=== PATIENT | female | born 1955 | race Caucasian/White ===

== ENCOUNTER 2017-03-13 11:47 | Inpatient (IN) | payer MEDICAID ==
[2017-03-13] VITALS (8 sets, daily range): BP systolic 116–136; BP diastolic 61–69; PULSE 105–111; RESP 18–29; TEMP 97.7–98.7; O2SAT 98–100
[~2017-03-13] VITALS: Ht 162.6 cm; Wt 47.1 kg
[2017-03-13] MEDS ORDERED: DIPHTH/TETANUS/ACEL PERTUSSIS (BOOSTER) 0.5 ML VIAL/PFS IM ONE (11:53)
[2017-03-13] MEDS ORDERED: ceFAZolin 2 GM PREMIX 50 ML ONE (11:53)
[2017-03-13 12:09] LABS: I-STAT POTASSIUM 3.4 MMOL/L (3.5-4.9)
[2017-03-13 12:13] LABS: HEMATOCRIT 29.9 % (35.0-46.0); MEAN CORPUSCULAR HEMOGLOBIN 32.5 PG (27.0-34.0); MEAN CORPUSCULAR HGB CONC 33.8 % (32.0-36.0); PLATELET COUNT 333 TH/MM3 (150-450); RED BLOOD COUNT 3.12 MIL/MM3 (4.00-5.30); RED CELL DISTRIBUTION WIDTH 12.6 % (11.6-17.2); WHITE BLOOD COUNT 25.1 TH/MM3 (4.0-11.0)
[2017-03-13] MEDS ORDERED: IOHEXOL 350 MG/ML 10 ML VIAL (for RAD DIAG) IVCONTRAST ONE (12:15)
--- NOTE | 2017-03-13 12:15 | RADRPT ---
EXAM DATE/TIME: 03/13/2017 11:42 [facility] COMPARISON: No previous studies available for comparison. INDICATIONS : Trauma from fall pain sacrum. MEDICAL HISTORY : None. SURGICAL HISTORY : None. ENCOUNTER: Initial ACUITY: 2 days PAIN SCORE: 6/10 LOCATION: Pelvis FINDINGS: A single view of the chest demonstrates the lungs to be symmetrically aerated without evidence of mas s, infiltrate or effusion. The cardiomediastinal contours are unremarkable. Osseous structures are intact. CONCLUSION: Limited but negative exam. Alex Decker MD FACR on March 13, 2017 at 12:13 Board Certified Radiologist. This report was verified electronically.
[2017-03-13 12:16] LABS: HEMO FLAGS AUTO DIFF
[2017-03-13 12:20] LABS: INTERNATIONAL NORMALIZED RATIO 0.9 RATIO; PROTHROMBIN TIME - PATIENT 10.3 SEC (9.8-11.6)
--- NOTE | 2017-03-13 12:21 | RADRPT ---
EXAM DATE/TIME: 03/13/2017 11:57 [facility] COMPARISON: No previous studies available for comparison. INDICATIONS : Trauma alert, found down. RADIATION DOSE: 69.15 CTDIvol (mGy) MEDICAL HISTORY : Non-responsive. SURGICAL HISTORY : Non-responsive. ENCOUNTER: Initial ACUITY: 1 day PAIN SCALE: 10/10 LOCATION: cranial TECHNIQUE: Multiple contiguous axial images were obtained of the head. Using automated exposure control and adj ustment of the mA and/or kV according to patient size, radiation dose was kept as low as reasonably a chievable to obtain optimal diagnostic quality images. DICOM format image data is available electro nically for review and comparison. FINDINGS: CEREBRUM: Small cortical contusion high in the orbitofrontal region the right and extends down to the expected location of the LACHO with subarachnoid blood. Aneurysm is suspected. The left hemisphere is unremarkable. Ventricular size is appropriate. The posterior fossa appears normal EXTRACRANIAL: The visualized portion of the orbits is intact. SKULL: The calvaria is intact. No evidence of skull fracture. CONCLUSION: Small amount of parenchymal hemorrhage and subarachnoid blood also suspicious for ru ptured aneurysm. Alex Decker MD FACR on March 13, 2017 at 12:14 Board Certified Radiologist. This report was verified electronically.
--- NOTE | 2017-03-13 12:24 | RADRPT ---
EXAM DATE/TIME: 03/13/2017 11:58 [facility] COMPARISON: No previous studies available for comparison. INDICATIONS : Trauma alert, found down RADIATION DOSE: 37.05 CTDIvol (mGy) ; Combined studies MEDICAL HISTORY : Non-responsive. SURGICAL HISTORY : Non-responsive. ENCOUNTER: Initial ACUITY: 1 day PAIN SCALE: 10/10 LOCATION: neck TECHNIQUE: Volumetric scanning of the cervical spine was performed. Multiplanar reconstructions in the sagittal, coronal and oblique axial planes were performed. Using automated exposure control and adjustment o f the mA and/or kV according to patient size, radiation dose was kept as low as reasonably achievable to obtain optimal diagnostic quality images. DICOM format image data is available electronically f or review and comparison. FINDINGS: VERTEBRAE: Normal vertebral body height. ALIGNMENT: No evidence of subluxation. C2-C3: The bony spinal canal is normal in size. No evidence of disc bulge or herniation. The neural forami na are bilaterally patent. C3-C4: The bony spinal canal is normal in size. No evidence of disc bulge or herniation. The neural forami na are bilaterally patent. C4-C5: Minimal motion is present mild degenerative facet changes. C5-C6: Mild uncinate ridging with bilateral neural foraminal encroachment. No motion is evident. Mild unci tatiana ridging without spinal stenosis or neural foraminal encroachment. C6-C7: Mild uncinate ridging and minimal bilateral neural foramina encroachment. C7-T1: The bony spinal canal is normal in size. No evidence of disc bulge or herniation. The neural forami na are bilaterally patent. CONCLUSION: Motion artifact, mild degenerative changes at C5-C6 and C6-C7 without fracture. Alex Decker MD FACR on March 13, 2017 at 12:21 Board Certified Radiologist. This report was verified electronically.
--- NOTE | 2017-03-13 12:27 | RADRPT ---
EXAM DATE/TIME: 03/13/2017 12:02 [facility] COMPARISON: No previous studies available for comparison. INDICATIONS : Trauma alert, Found down IV CONTRAST: 95 cc Omnipaque 350 (iohexol) IV ; Cumulative dose for multiple exams. ORAL CONTRAST: No oral contrast ingested. RADIATION DOSE: 9.96 CTDIvol (mGy) ; Combined studies MEDICAL HISTORY : Non-responsive. SURGICAL HISTORY : Non-responsive. ENCOUNTER: Initial ACUITY: 1 day PAIN SCALE: 10/10 LOCATION: Abdominal area TECHNIQUE: Volumetric scanning of the abdomen and pelvis was performed. Using automated exposure control and ad justment of the mA and/or kV according to patient size, radiation dose was kept as low as reasonably achievable to obtain optimal diagnostic quality images. DICOM format image data is available electro nically for review and comparison. FINDINGS: The lung base is are clear without pneumothorax. The liver, spleen, and adrenal glands are unremarkable minimal calcification is seen about the uncin ate process of the pancreas. The right and left kidneys are unremarkable There is no free fluid. Pelvic contents are unremarkable Moderate scoliosis is noted with degenerative changes in the facets and both SI joints. Displaced fr acture is not appreciated. CONCLUSION: Minimal calcifications in uncinate process pancreas Negative for acute metastatic injury Negative for displaced fracture Degenerative changes in the lumbar spine. Alex Decker MD FACR on March 13, 2017 at 12:23 Board Certified Radiologist. This report was verified electronically.
--- NOTE | 2017-03-13 12:33 | RADRPT ---
EXAM DATE/TIME: 03/13/2017 12:00 [facility] COMPARISON: No previous studies available for comparison. INDICATIONS : Trauam alert, found down IV CONTRAST: 95 cc Omnipaque 350 (iohexol) IV ; Cumulative dose for multiple exams. RADIATION DOSE: 9.96 CTDIvol (mGy) ; Combined studies MEDICAL HISTORY : Non-responsive. SURGICAL HISTORY : Non-responsive. ENCOUNTER: Initial ACUITY: 1 day PAIN SCALE: 10/10 LOCATION: chest TECHNIQUE: Volumetric scanning of the chest was performed. Using automated exposure control and adjustment of t he mA and/or kV according to patient size, radiation dose was kept as low as reasonably achievable to obtain optimal diagnostic quality images. DICOM format image data is available electronically for review and comparison. Follow-up recommendations for detected pulmonary nodules are based at a minimum on nodule size and pa tient risk factors according to Fleischner Society Guidelines. FINDINGS: There is no pneumothorax or contusion. There is no axillary adenopathy Mediastinum is unremarkable There is no pericardial effusion The large outer hernia is noted Review of bone windows reveals thoracolumbar scoliosis. I don't see displaced rib fracture Thoracic spine is intact. CONCLUSION: Scoliosis, negative for acute thoracic injury. Alex Decker MD FACR on March 13, 2017 at 12:31 Board Certified Radiologist. This report was verified electronically.
[2017-03-13] MEDS ORDERED: IODIXANOL 320 MG/ML 10 ML VIAL (for Rad CT) IV ONE (12:35)
--- NOTE | 2017-03-13 12:35 | RADRPT ---
EXAM DATE/TIME: 03/13/2017 11:42 [facility] COMPARISON: No previous studies available for comparison. INDICATIONS : Fall pain upper back. MEDICAL HISTORY : None. SURGICAL HISTORY : None. ENCOUNTER: Initial ACUITY: 2 days PAIN SCORE: 8/10 LOCATION: Bilateral chest FINDINGS: No definite fractures, or dislocations are identified. No definite lytic or sclerotic lesion is seen . There is moderate amount of stool throughout the colon. CONCLUSION: No definite fracture is seen for technique. K. Zenon Perez MD on March 13, 2017 at 12:33 Board Certified Radiologist. This report was verified electronically.
--- NOTE | 2017-03-13 12:50 | RADRPT ---
EXAM DATE/TIME: 03/13/2017 12:00 [facility] COMPARISON: No previous studies available for comparison. INDICATIONS : Trauma alert, found down RADIATION DOSE: ; Reconstructed from previous dataset, no dose MEDICAL HISTORY : Non-responsive. SURGICAL HISTORY : Non-responsive. ENCOUNTER: Initial ACUITY: 1 day PAIN SCALE: 10/10 LOCATION: Lower back TECHNIQUE: Volumetric scanning of the lumbar spine was performed. Multiplanar reconstructions in the sagittal, coronal and oblique axial planes were performed. Using automated exposure control and adjustment of the mA and/or kV according to patient size, radiation dose was kept as low as reasonably achievable t o obtain optimal diagnostic quality images. DICOM format image data is available electronically for review and comparison. FINDINGS: No significant compression deformities, spondylolysis, or spondylolisthesis is seen. There is scolios is convexity towards the left. L1-L2: No appreciable compromise to the thecal sac, or the exiting nerve roots is seen. The neural foramina and lateral recesses are patent bilaterally. L2-L3: Moderate degenarative changes are seen within the disc space and facets. Slight bulging disc a nd hypertrophic changes are seen with indentation on the thecal sac and no significant compromise to the thecal sac or the exiting nerve roots. L3-L4: Moderate overall thecal sac stenosis is seen due to bulging disc and hypertrophic changes. Mod erate degenarative changes are seen within the disc space and facets. There is slight neural foramina compromise on the right due to asymmetrical bulging disc and hypertrophic changes. L4-L5: Moderate degenarative changes are seen within the disc space and facets. Moderate lateral rece ss compromise is seen on the left due to hypertrophic changes and bulging disc. There is slight neura l foramina compromise on the left due to asymmetrical bulging disc and hypertrophic changes. Slight b ulging disc and hypertrophic changes are seen with indentation on the thecal sac and no significant c ompromise to the thecal sac. L5-S1: No appreciable compromise to the thecal sac, or the exiting nerve roots is seen. The neura l foramina and lateral recesses are patent bilaterally CONCLUSION: 1. Moderate thecal sac stenosis L3-4. 2. Neural foramina compromise right L3-L4, left L4-5 and moderate lateral recess stenosis left L4-5. Terrell Perez MD on March 13, 2017 at 12:41 Board Certified Radiologist. This report was verified electronically.
[2017-03-13] MEDS ORDERED: SODIUM CHLOR 0.9% 1000 ML INJ 1,000 ML IV SCH (12:51)
[2017-03-13] MEDS ORDERED: MAGNESIUM HYDROXIDE SUSP 30 ML CUP PO PRN (13:00)
[2017-03-13] MEDS ORDERED: ACETAMINOPHEN 325 MG TAB PO PRN (13:00)
[2017-03-13] MEDS ORDERED: RESP: ALBUTEROL 2.5 MG/IPRATROPIUM 0.5 MG NEB (PRN) INH (13:00)
[2017-03-13] MEDS ORDERED: CHLORHEXIDINE GLUCONATE 2 % 1 PACK (2 CLOTHS) TOP PRN ×2 (13:00)
[2017-03-13] MEDS ORDERED: ENALAPRILAT 1.25 MG/ML VIAL IV PRN (13:00)
[2017-03-13] MEDS ORDERED: SENNOSIDES 8.6 MG TAB PO PRN (13:00)
[2017-03-13] MEDS ORDERED: ACETAMINOPHEN/HYDROcodone 325 MG/5 MG TAB PO PRN (13:00)
[2017-03-13] MEDS ORDERED: LACTULOSE SYRUP 20 GM/30 ML CUP PO PRN (13:00)
[2017-03-13] MEDS ORDERED: ONDANSETRON HCL 4 MG/2 ML VIAL IV PUSH PRN (13:00)
[2017-03-13] MEDS ORDERED: MISCELLANEOUS NURSING INFORMATION XX SCH ×2 (13:00)
[2017-03-13] MEDS ORDERED: BISACODYL 10 MG SUPP RECTAL PRN (13:00)
--- NOTE | 2017-03-13 13:11 | RADRPT ---
EXAM DATE/TIME: 03/13/2017 12:00 [facility] COMPARISON: No previous studies available for comparison. INDICATIONS : Trauma alert, found down RADIATION DOSE: ; Reconstructed from previous dataset, no dose MEDICAL HISTORY : Non-responsive. SURGICAL HISTORY : Non-responsive. ENCOUNTER: Initial ACUITY: 1 day PAIN SCALE: 10/10 LOCATION: upper back pain TECHNIQUE: Volumetric scanning of the thoracic spine was performed. Multiplanar reconstructions in the sagittal, coronal and oblique axial planes were performed. Using automated exposure control a nd adjustment of the mA and/or kV according to patient size, radiation dose was kept as low as reason ably achievable to obtain optimal diagnostic quality images. DICOM format image data is available e lectronically for review and comparison. FINDINGS: There is osteopenia with compression deformity of T3 vertebrae on the order of 40% of indeterminant a ge, however there is an acute fracture involving the superior endplate of T11 without any significant compression. T1-T2: No appreciable compromise to the thecal sac, spinal cord, or the exiting nerve roots are seen. The neural foramina are grossly patent bilaterally. T2-T3: No appreciable compromise to the thecal sac, spinal cord, or the exiting nerve roots are seen. The neural foramina are grossly patent bilaterally. T3-T4: No appreciable compromise to the thecal sac, spinal cord, or the exiting nerve roots are seen. The neural foramina are grossly patent bilaterally. T4-T5: No appreciable compromise to the thecal sac, spinal cord, or the exiting nerve roots are seen. The neural foramina are grossly patent bilaterally. T5-T6: No appreciable compromise to the thecal sac, spinal cord, or the exiting nerve roots are seen. The neural foramina are grossly patent bilaterally. T6-T7: No appreciable compromise to the thecal sac, spinal cord, or the exiting nerve roots are seen. The neural foramina are grossly patent bilaterally. T7-T8: No appreciable compromise to the thecal sac, spinal cord, or the exiting nerve roots are seen. The neural foramina are grossly patent bilaterally. T8-T9: No appreciable compromise to the thecal sac, spinal cord, or the exiting nerve roots are seen. The neural foramina are grossly patent bilaterally. T9-T10: No appreciable compromise to the thecal sac, spinal cord, or the exiting nerve roots are see n. The neural foramina are grossly patent bilaterally. T10-T11: No appreciable compromise to the thecal sac, spinal cord, or the exiting nerve roots are se en. The neural foramina are grossly patent bilaterally. T11-T12: No appreciable compromise to the thecal sac, spinal cord, or the exiting nerve roots are se en. The neural foramina are grossly patent bilaterally. T12-L1: No appreciable compromise to the thecal sac, spinal cord, or the exiting nerve roots are s een. The neural foramina are grossly patent bilaterally. CONCLUSION: Acute fracture of superior endplate of T11 acute in nature with compression deformity of T3 on the order of 40% of indeterminant age without any significant compromise to the thecal sac or the exiting nerve roots. Terrell Perez MD on March 13, 2017 at 13:03 Board Certified Radiologist. This report was verified electronically.
[2017-03-13 13:19] LABS: BANDS 4 % (0-6); NEUTROPHIL # MANUAL DIFF 23.3 TH/MM3 (1.8-7.7); POLYS (SEG NEUTROPHILS) 89 % (16-70); WBC DIFF SAMPLE 100
[2017-03-13 13:22] LABS: PLATELET ESTIMATE SMEAR NORMAL (NORMAL); PLATELET MORPHOLOGY ENLARGED (NORMAL); SCAN/DIFF FINAL DIFF MANUAL
--- NOTE | 2017-03-13 13:25 | PD ---
HPI Chief Complaint: Trauma (Alert) Time Seen by Provider: 11:58 Travel History International Travel<30 days: No Contact w/Intl Traveler<30days: No History of Present Illness HPI The patient arrives as a trauma alert. She is 61 years old. She was found with altered mental status by family members after she was last seen normal last night. She had a heart rate of 120 and blood pressure 96/71. Her blood glucose was 97. EMS reports there was a large quantity of blood seen throughout the house. In the ER she complains of pain in her back from neck to sacrum. It's constant and severe. She does not recall the events of the preceding evening or morning. Allergies-Medications (Allergen,Severity, Reaction): Coded Allergies: No Known Allergies (Unverified , 03/13/17) Review of Systems ROS Limitations: Clinical Condition Physical Exam Narrative GENERAL: Somewhat thin 61-year-old female mild to moderate distress secondary to pain and/or anxiety SKIN: Warm and dry. Laceration overlying the forehead horizontal in orientation linear about 4 cm long approximately about 1 cm wide with minimal exposed underlying adipose. HEAD: Atraumatic. Normocephalic. No evidence skull base fracture. EYES: Pupils equal and round. No scleral icterus. No injection or drainage. 3 mm and reactive. ENT: No nasal bleeding or discharge. Mucous membranes pink and moist. NECK: Trachea midline. No JVD. CARDIOVASCULAR: Tachycardia. Regular rhythm.. RESPIRATORY: No accessory muscle use. Clear to auscultation. Breath sounds equal bilaterally. GASTROINTESTINAL: Abdomen soft, non-tender, nondistended. Hepatic and splenic margins not palpable. MUSCULOSKELETAL: Extremities without clubbing, cyanosis, or edema. No obvious deformities. NEUROLOGICAL: Answers questions appropriately. A and O 3. The cranial nerves appear normal. The patient moves all extremities. GCS 15. PSYCHIATRIC: Appropriate anxiety. Data Data Last Documented VS Vital Signs Date Time Temp Pulse Resp B/P (MAP) Pulse Ox O2 Delivery O2 Flow Rate FiO2 03/13/17 11:40 100 4.00 Orders Orders Cefazolin 2 Gm Premix (Ancef 2 Gm Premix (03/13/17 11:53) Xjnw-Sij-Bnpvhm (Booster) Inj (Boostrix (03/13/17 11:53) I-Stat Profile (03/13/17 11:58) I-Stat Creatinine (03/13/17 11:58) Complete Blood Count With Diff (03/13/17 11:58) Prothrombin Time / Inr (Pt) (03/13/17 11:58) Act Partial Throm Time (Ptt) (03/13/17 11:58) Type And Screen (03/13/17 11:58) Alcohol (Ethanol) (03/13/17 11:58) Chest, Single Ap (03/13/17 11:58) Pelvis, Ap Only (Routine) (03/13/17 11:58) Ct Brain W/O Iv Contrast(Rout) (03/13/17 11:58) Ct Cerv Spine W/O Contrast (03/13/17 11:58) Ct Abd/Pel W Iv Contrast(Rout) (03/13/17 11:58) Ct Thorax/ Chest W Iv Contrast (03/13/17 11:58) Ct Thor Spine W/O Contrast (03/13/17 11:58) Ct Lumb Spine W/O Contrast (03/13/17 11:58) Iv Access Insert/Monitor (03/13/17 11:58) Ecg Monitoring (03/13/17 11:58) Oximetry (03/13/17 11:58) Oxygen Administration (03/13/17 11:58) Remove Backboard (03/13/17 11:58) Drug Screen, Random Urine (03/13/17 11:58) Cta Brain W Iv Contrast W 3d (03/13/17 ) Cta Neck W Iv Contrast W 3d (03/13/17 ) Iohexol 350 Inj (Omnipaque 350 Inj) (03/13/17 12:15) Iodixanol 320 Inj (Rad Ct) (Visipaque 32 (03/13/17 12:35) Admit To Inpatient (03/13/17 ) Vital Signs (Adult) YRIS.QSHIFT (03/13/17 12:51) Intake + Output YRIS.Q8H (03/13/17 12:51) Neuro Checks YRIS.Q1H (03/13/17 12:51) Activity Bed Rest (03/13/17 12:51) Scd / Frank / Foot Pump YRIS.QSHIFT (03/13/17 12:51) ^ Cervical Collar (03/13/17 12:51) Instruction (03/13/17 12:51) Complete Blood Count With Diff (03/14/17 06:00) Comprehensive Metabolic Panel (03/14/17 06:00) Sodium Chloride 0.9% Flush (Ns Flush) (03/13/17 13:00) Hydromorphone Pf Inj (Dilaudid Pf Inj) (03/13/17 13:00) Acetamin-Hydrocod 325-5 Mg (Tyler 5-325 (03/13/17 13:00) Acetamin-Hydrocod 325-5 Mg (Tyler 5-325 (03/13/17 13:00) Enalaprilat Inj (Vasotec Inj) (03/13/17 13:00) Ondansetron Inj (Zofran Inj) (03/13/17 13:00) Pantoprazole Inj (Protonix Inj) (03/13/17 15:00) Consult Neurosurgery (03/13/17 ) ^ Initiate Protocol (03/13/17 12:51) Instruction (03/13/17 12:51) [facility] (03/13/17 13:00) Chlorhexidine 2% Cloth (Chlorhexidine 2% (03/14/17 04:00) Chlorhexidine 2% Cloth (Chlorhexidine 2% (03/13/17 13:00) Mrsa Pcr Surveillance (03/13/17 12:51) Inpatient Certification (03/13/17 ) Consult Paramjit Gts (03/13/17 ) Labs Laboratory Tests Test 03/13/17 11:50 White Blood Count 25.1 TH/MM3 Red Blood Count 3.12 MIL/MM3 Hemoglobin 10.1 GM/DL Bedside Hemoglobin 10.2 G/DL Hematocrit 29.9 % Bedside Hematocrit 30.0 % Mean Corpuscular Volume 96.0 FL Mean Corpuscular Hemoglobin 32.5 PG Mean Corpuscular Hemoglobin Concent 33.8 % Red Cell Distribution Width 12.6 % Platelet Count 333 TH/MM3 Mean Platelet Volume 7.3 FL CBC Comment AUTO DIFF Differential Total Cells Counted 100 Neutrophils % (Manual) 89 % Band Neutrophils % 4 % Lymphocytes % 2 % Monocytes % 5 % Neutrophils # (Manual) 23.3 TH/MM3 Differential Comment FINAL DIFF MANUAL Platelet Estimate NORMAL Platelet Morphology Comment ENLARGED Red Cell Morphology Comment NORMAL Prothrombin Time 10.3 SEC Prothromb Time International Ratio 0.9 RATIO Activated Partial Thromboplast Time 23.0 SEC Bedside Sodium 132 MMOL/L Bedside Potassium 3.4 MMOL/L Bedside Chloride 94 MMOL/L Bedside Blood Urea Nitrogen 20 MG/DL Bedside Creatinine 1.1 MG/DL Bedside Glucose 86 MG/DL Total Bilirubin 0.8 MG/DL Direct Bilirubin 0.2 MG/DL Indirect Bilirubin 0.6 MG/DL Gamma Glutamyl Transpeptidase 22 U/L Aspartate Amino Transf (AST/SGOT) 49 U/L Alanine Aminotransferase (ALT/SGPT) 57 U/L Alkaline Phosphatase 57 U/L Total Creatine Kinase 443 U/L Creatine Kinase MB 10.5 NG/ML Creatine Kinase MB % 2.4 % Total Protein 6.3 GM/DL Albumin 3.2 GM/DL Ethyl Alcohol Level 299 MG/DL [facility] Medical Screen Exam Complete: Yes Emergency Medical Condition: Yes Differential Diagnosis ICH, skull/skull base fx, c-spine fx, facial bone fracture, YADIRA, PTX, aorta injury, diaphragm rupture, pelvis fracture, intraperitoneal hemorrhage, solid organ injury, retroperitoneal hemorrhage, long bone fracture, open fracture Narrative Course CBC & BMP Diagram 03/13/17 11:50 Alcohol 299 Urine drug screen negative Last 24 hours Impressions Thoracic Spine CT 03/13/17 1158 Signed Impressions: Service Date/Time: Monday, March 13, 2017 12:00 - CONCLUSION: Acute fracture of superior endplate of T11 acute in nature with compression deformity of T3 on the order of 40%% of indeterminant age without any significant compromise to the thecal sac or the exiting nerve roots. Terrell Perez MD Pelvis X-Ray 03/13/17 115 Signed Impressions: Service Date/Time: Monday, March 13, 2017 11:42 - CONCLUSION: No definite fracture is seen for technique. Terrell Perez MD Lumbar Spine CT 03/13/17 1158 Signed Impressions: Service Date/Time: Monday, March 13, 2017 12:00 - CONCLUSION: 1. Moderate thecal sac stenosis L3-4. 2. Neural foramina compromise right L3-L4, left L4- 5 and moderate lateral recess stenosis left L4-5. Terrell Perez MD Head CT 03/13/17 1158 Signed Impressions: Service Date/Time: Monday, March 13, 2017 11:57 - CONCLUSION: Small amount of parenchymal hemorrhage and subarachnoid blood also suspicious for ruptured aneurysm. MD ROJAS CorreaR Chest X-Ray 03/13/17 1158 Signed Impressions: Service Date/Time: Monday, March 13, 2017 11:42 - CONCLUSION: Limited but negative exam. MD ROJAS CorreaR Chest CT 03/13/17 1158 Signed Impressions: Service Date/Time: Monday, March 13, 2017 12:00 - CONCLUSION: Scoliosis, negative for acute thoracic injury. MD JEOVANY Correa Cervical Spine CT 03/13/17 1158 Signed Impressions: Service Date/Time: Monday, March 13, 2017 11:58 - CONCLUSION: Motion artifact, mild degenerative changes at C5-C6 and C6-C7 without fracture. MD ROJAS CorreaR Abdomen/Pelvis CT 03/13/17 1158 Signed Impressions: Service Date/Time: Monday, March 13, 2017 12:02 - CONCLUSION: Minimal calcifications in uncinate process pancreas Negative for acute metastatic injury Negative for displaced fracture Degenerative changes in the lumbar spine. MD ROJAS CorreaR Neck CTA 03/13/17 0000 Signed Impressions: Service Date/Time: Monday, March 13, 2017 12:21 - CONCLUSION: No evidence of acute arterial injury. No evidence of carotid stenosis Pillo Huber MD Head CTA 03/13/17 0000 Signed Impressions: Service Date/Time: Monday, March 13, 2017 12:21 - CONCLUSION: Negative for aneurysm. Small cortical contusions in both orbitofrontal regions. Small. Alex Decker MD FACR Patient will be admitted to [facility]. Critical Care Narrative Aggregate critical care time was 35 minutes. Time to perform other separately billable procedures was not included in the critical care time. My time did not include minutes spent treating any other patients simultaneously or on activities that did not directly contribute to the patient's treatment. The services I provided to this patient were to treat and/or prevent clinically significant deterioration that could result in: Permanent disability, mortality I provided critical care services requiring my management, as noted below: Chart data review, documentation time, medication orders and management, vital sign assessments/reviewing monitor data, ordering and reviewing lab tests, ordering and interpreting/reviewing x-rays and diagnostic studies, care of the patient and discussion of the patient with the admitting physicians. Trauma Alert - Level One Trauma Alert Level One: Full trauma team activate, Patient evaluated, Trauma surgeon summoned Time Surgeon Summoned: 11:41 Diagnosis Diagnosis: Primary Impression: ICH (intracerebral hemorrhage) Qualified Codes: I61.9 - Nontraumatic intracerebral hemorrhage, unspecified Additional Impressions: Alcohol intoxication Qualified Codes: F10.920 - Alcohol use, unspecified with intoxication, uncomplicated Fall Qualified Codes: W19.XXXA - Unspecified fall, initial encounter Admitting Physician Requests: Admit Ciro Mendez MD Mar 13, 2017 13:25
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
[2017-03-13] MEDS: MORPHINE SULFATE 4 MG/ML INJ IV PUSH PRN ×2 (13:42→16:25)
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
[2017-03-13] MEDS: SODIUM CHLOR 0.9% 1000 ML INJ 1,000 ML IV SCH (14:30)
[2017-03-13] MEDS: THIAMINE INJ 100 MG in SODIUM CHLORIDE 0.9% INJ 100 ML IV SCH (15:10)
[2017-03-13] MEDS: PANTOPRAZOLE SODIUM 40 MG VIAL IVP SCH (15:11)
[2017-03-13] MEDS ORDERED: SODIUM CHLOR 0.9% 1000 ML INJ 1,000 ML IV ONE (15:30)
[2017-03-13 15:40] LABS: INDIRECT BILIRUBIN 0.6 MG/DL (0.0-0.8); TOTAL BILIRUBIN ADULT 0.8 MG/DL (0.2-1.0)
[2017-03-13 16:15] LABS: CKMB 10.5 NG/ML (0.5-3.6)
[2017-03-13] MEDS: ONDANSETRON HCL 4 MG/2 ML VIAL IV PRN (17:40)
[2017-03-13] MEDS: ACETAMINOPHEN/HYDROcodone 325 MG/5 MG TAB PO PRN (19:37)
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
[2017-03-13] MEDS ORDERED: DOCUSATE SODIUM 50 MG/SENNA 8.6 MG TAB PO SCH (21:00)
[2017-03-13] MEDS: HYDROmorphone HCL PF 1 MG/ML VIAL IVP PRN (22:52)
[2017-03-14] VITALS: BP 162/75; PULSE 96; RESP 30; TEMP 97.9; O2SAT 100
[2017-03-14] MEDS: ACETAMINOPHEN/HYDROcodone 325 MG/5 MG TAB PO PRN ×5 (02:06→18:58)
[2017-03-14] MEDS: SODIUM CHLOR 0.9% 1000 ML INJ 1,000 ML IV SCH ×2 (02:42→16:48)
[2017-03-14] MEDS: LORazepam 2 MG/ML VIAL IV PUSH PRN ×4 (03:19→23:49)
[2017-03-14 04:00] VITALS: BP 146/67; PULSE 100; RESP 14; TEMP 97.8; O2SAT 100
[2017-03-14] MEDS ORDERED: CHLORHEXIDINE GLUCONATE 2 % 1 PACK (2 CLOTHS) TOP SCH (04:00)
[2017-03-14 05:27] LABS: BASOPHIL % 0.2 % (0.0-2.0); HEMATOCRIT 23.1 % (35.0-46.0); HEMO FLAGS DIFF FINAL; LYMPH % 7.7 % (9.0-44.0); LYMPHOCYTE # 1.2 TH/MM3 (1.0-4.8); MEAN CELL VOLUME 96.9 FL (80.0-100.0); MEAN CORPUSCULAR HEMOGLOBIN 33.3 PG (27.0-34.0); MEAN CORPUSCULAR HGB CONC 34.3 % (32.0-36.0); MONO % 6.7 % (0.0-8.0); NEUT % 85.4 % (16.0-70.0); PLATELET COUNT 232 TH/MM3 (150-450); RED BLOOD COUNT 2.39 MIL/MM3 (4.00-5.30); RED CELL DISTRIBUTION WIDTH 12.5 % (11.6-17.2); WHITE BLOOD COUNT 15.3 TH/MM3 (4.0-11.0)
[2017-03-14 05:55] LABS: BICARBONATE 23.3 MEQ/L (21.0-32.0); MAGNESIUM 1.6 MG/DL (1.5-2.5); POTASSIUM 3.8 MEQ/L (3.5-5.1)
[2017-03-14] MEDS: CHLORHEXIDINE GLUCONATE 2 % 1 PACK (2 CLOTHS) TOP SCH (06:18)
[2017-03-14 08:00] VITALS: PULSE 98
[2017-03-14 09:21] VITALS: O2SAT 99
[2017-03-14] MEDS ORDERED: HYDR-3366 PO (09:48)
[2017-03-14] MEDS: THIAMINE INJ 100 MG in SODIUM CHLORIDE 0.9% INJ 100 ML IV SCH (09:48)
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
[2017-03-14 12:00] VITALS: BP 157/75; PULSE 92; RESP 13; TEMP 98.4; O2SAT 100
[2017-03-14] MEDS: ALUMINUM/MAGNESIUM/SIMETH 30 ML CUP PO PRN (12:26)
[2017-03-14] MEDS: ONDANSETRON HCL 4 MG/2 ML VIAL IV PRN ×2 (13:05→19:04)
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
[2017-03-14] MEDS: PANTOPRAZOLE SODIUM 40 MG VIAL IVP SCH (15:03)
--- NOTE | 2017-03-14 15:10 | HHI.NSPN ---
(Homer Dimas) History Chief Complaint: Headache and aches all over. (Homer Dimas) Interval History 03/13: 61-year-old female brought to the emergency room this morning after being found by her family with altered mental status in the home, after being reportedly seen with normal mental status last evening. The patient us and have good recall for last evening's events. She indicates that she was drinking alcohol. States that she usually does not drink significant amounts of alcohol. EtOH level 299 in the emergency room. There is apparently a lot of blood scattered throughout the house. She has been noted to have a forehead fracture, numerous extremity abrasions and contusions. She complains of neck pain and exacerbation of her usual chronic back pain. Complains of diffuse aching and discomfort throughout her body. Positive headache. No dizziness. No vertigo. No complaint of chest pain or shortness of breath. No blurred vision or diplopia. 03/14: The patient is awake and alert. She complains of a headache, nausea and aching all over. She also reports anxiety. She did say that the Ativan and pain medication did help her. (Homer Dimas) System Review Comments Constitutional: Patient complains of generalised aching. She denies any fever or chills. HEENT: Patient complains of pain to the back of the head. She denies any visual or hearing difficulty. Respiratory: Patient has left-sided chest wall/rib pain. She denies any shortness of breath or productive cough. Cardiovascular: Patient denies any chest pain, palpitations or irregular heartbeat. Gastrointestinal: Patient complains of nausea. She denies any abdominal pain, vomiting or incontinence of stool. Genitourinary: Patient denies any incontinence of urine. Musculoskeletal: Patient complains of lower neck pain and chronic back pain. She complains of pain to the right knee and aches all over. Integumentary: Patient complains of multiple wounds especially to the back of the head and the right knee. Neurologic: Patient complains of a headache and some dizziness. She denies any numbness or tingling. Psychiatric: Patient complains of anxiety. (Homer Dimas) Exam Results 03/12/17 03/12/17 03/13/17 03/13/17 03/14/17 03/14/17 06:00 18:00 06:00 18:00 06:00 18:00 Intake Total 2643 ml 1821 ml Output Total 1390 ml 2385 ml Balance 1253 ml -564 ml Intake Oral 450 ml 720 ml IV Total 2193 ml 1101 ml Output Urine Total 1140 ml 1685 ml Emesis 250 ml 700 ml Vital Signs Date Time Temp Pulse Resp B/P (MAP) Pulse Ox O2 Delivery O2 Flow Rate FiO2 03/14/17 12:07 15 03/14/17 12:00 98.4 92 13 157/75 (102) 100 03/14/17 12:00 92 03/14/17 09:21 99 21 03/14/17 08:00 98 03/14/17 08:00 99 Nasal Cannula 2.00 03/14/17 04:00 97.8 100 14 146/67 (93) 100 03/14/17 04:00 100 03/14/17 00:00 97.9 96 30 162/75 (104) 100 03/14/17 00:00 96 03/13/17 22:00 106 03/13/17 21:35 98 Nasal Cannula 2.00 03/13/17 20:00 106 03/13/17 20:00 97.8 105 22 136/69 (91) 100 03/13/17 19:00 100 Nasal Cannula 2.00 03/13/17 16:00 98.7 110 18 116/61 (79) 100 03/13/17 15:00 109 03/13/17 14:00 97.7 111 29 118/63 (81) 100 03/13/17 13:53 100 Nasal Cannula 4.00 03/13/17 11:40 100 4.00 (Homer Dimas) Physical Examination GENERAL: Patient is awake & alert. She readily interacts. Her affect is essentially normal. She appears moderately uncomfortable. SKIN: Numerous abrasions and ecchymotic area to head, face and extremities. HEENT: Normocephalic. Blood matted in hair. Right supraorbital/forehead lacerations, forehead mildly TTP. Occipital scalp TTP. PERRLA, EOMI. No otorrhea or rhinorrhea, sanguinous drainage to the left external ear. MMM & pink , tongue midline to protrusion. NECK: Moderately diffuse TTP lower midline cervical spine, no JVD, trachea midline. CARDIOVASCULAR: S1S2 w/RRR w/o M/G/R, cap refill < 2 sec, cap refill < 2 sec, no pedal edema. Monitor is sinus rhythm to sinus tachycardia (low 100s) w/o any ectopy noted. RESPIRATORY: Left anterolateral chest wall moderately TTP, CTAB w/o W/R/R, equal excursion, nonlaboured, on NC. GASTROINTESTINAL: Abdomen soft, nontender, positive bowel sounds. MUSCULOSKELETAL: Multiple abrasions/lacerations & ecchymosis to all extremities which are TTP, with the worse being the right knee. The thoracolumbar spine is mildly to moderately TTP and she is unable to say if it is any worse than her chronic back pain. NEUROLOGICAL: AAOx3. Speech clear & appropriate. Follows simple commands w/o difficulty. CN II-XII appear grossly intact. Sensation intact to light touch to all extremities. Motor strength symmetrical to all major flexion & extension muscle groups. (Homer Dimas) Lab, Micro, Other Results Recent Impressions Thoracic Spine CT 03/13/171157 Signed Impressions: Service Date/Time: Monday, March 13, 2017 12:00 - CONCLUSION: Acute fracture of superior endplate of T11 acute in nature with compression deformity of T3 on the order of 40%% of indeterminant age without any significant compromise to the thecal sac or the exiting nerve roots. Terrell Perez MD Pelvis X-Ray 03/13/171157 Signed Impressions: Service Date/Time: Monday, March 13, 2017 11:42 - CONCLUSION: No definite fracture is seen for technique. Terrell Perez MD Lumbar Spine CT 03/13/171157 Signed Impressions: Service Date/Time: Monday, March 13, 2017 12:00 - CONCLUSION: 1. Moderate thecal sac stenosis L3-4. 2. Neural foramina compromise right L3-L4, left L4- 5 and moderate lateral recess stenosis left L4-5. Terrell Perez MD Head CT 03/13/17 1158 Signed Impressions: Service Date/Time: Monday, March 13, 2017 11:57 - CONCLUSION: Small amount of parenchymal hemorrhage and subarachnoid blood also suspicious for ruptured aneurysm. Alex Decker MD FACR Chest X-Ray 03/13/178 Signed Impressions: Service Date/Time: Monday, March 13, 2017 11:42 - CONCLUSION: Limited but negative exam. Alex Decker MD FACR Chest CT 03/13/17 115 Signed Impressions: Service Date/Time: Monday, March 13, 2017 12:00 - CONCLUSION: Scoliosis, negative for acute thoracic injury. Alex Decker MD FACR Cervical Spine CT 03/13/17 115 Signed Impressions: Service Date/Time: Monday, March 13, 2017 11:58 - CONCLUSION: Motion artifact, mild degenerative changes at C5-C6 and C6-C7 without fracture. Alex Decker MD FACR Abdomen/Pelvis CT 03/13/17 1158 Signed Impressions: Service Date/Time: Monday, March 13, 2017 12:02 - CONCLUSION: Minimal calcifications in uncinate process pancreas Negative for acute metastatic injury Negative for displaced fracture Degenerative changes in the lumbar spine. Alex Decker MD FACR Neck CTA 03/13/17 0000 Signed Impressions: Service Date/Time: Monday, March 13, 2017 12:21 - CONCLUSION: No evidence of acute arterial injury. No evidence of carotid stenosis Pillo Huber MD Head CTA 03/13/17 0000 Signed Impressions: Service Date/Time: Monday, March 13, 2017 12:21 - CONCLUSION: Negative for aneurysm. Small cortical contusions in both orbitofrontal regions. Small. Alex Decker MD FACR Laboratory Tests Test 03/13/17 11:50 03/13/17 14:50 03/13/17 15:58 03/13/17 18:54 White Blood Count 25.1 TH/MM3 Red Blood Count 3.12 MIL/MM3 Hemoglobin 10.1 GM/DL Bedside Hemoglobin 10.2 G/DL Hematocrit 29.9 % Bedside Hematocrit 30.0 % Mean Corpuscular Volume 96.0 FL Mean Corpuscular Hemoglobin 32.5 PG Mean Corpuscular Hemoglobin Concent 33.8 % Red Cell Distribution Width 12.6 % Platelet Count 333 TH/MM3 Mean Platelet Volume 7.3 FL CBC Comment AUTO DIFF Differential Total Cells Counted 100 Neutrophils % (Manual) 89 % Band Neutrophils % 4 % Lymphocytes % 2 % Monocytes % 5 % Neutrophils # (Manual) 23.3 TH/MM3 Differential Comment FINAL DIFF MANUAL Platelet Estimate NORMAL Platelet Morphology Comment ENLARGED Red Cell Morphology Comment NORMAL Prothrombin Time 10.3 SEC Prothromb Time International Ratio 0.9 RATIO Activated Partial Thromboplast Time 23.0 SEC Bedside Sodium 132 MMOL/L Bedside Potassium 3.4 MMOL/L Bedside Chloride 94 MMOL/L Bedside Blood Urea Nitrogen 20 MG/DL Bedside Creatinine 1.1 MG/DL Bedside Glucose 86 MG/DL Total Bilirubin 0.8 MG/DL Direct Bilirubin 0.2 MG/DL Indirect Bilirubin 0.6 MG/DL Gamma Glutamyl Transpeptidase 22 U/L Aspartate Amino Transf (AST/SGOT) 49 U/L Alanine Aminotransferase (ALT/SGPT) 57 U/L Alkaline Phosphatase 57 U/L Total Creatine Kinase 443 U/L Creatine Kinase MB 10.5 NG/ML Creatine Kinase MB % 2.4 % Total Protein 6.3 GM/DL Albumin 3.2 GM/DL Ethyl Alcohol Level 299 MG/DL Urine Opiates Screen NEG Urine Barbiturates Screen NEG Urine Amphetamines Screen NEG Urine Benzodiazepines Screen NEG Urine Cocaine Screen NEG Urine Cannabinoids Screen NEG Lactic Acid Level 2.9 mmol/L Fibrinogen 240 mg/dL Test 03/14/17 04:49 White Blood Count 15.3 TH/MM3 Red Blood Count 2.39 MIL/MM3 Hemoglobin 7.9 GM/DL Hematocrit 23.1 % Mean Corpuscular Volume 96.9 FL Mean Corpuscular Hemoglobin 33.3 PG Mean Corpuscular Hemoglobin Concent 34.3 % Red Cell Distribution Width 12.5 % Platelet Count 232 TH/MM3 Mean Platelet Volume 7.3 FL Neutrophils (%) (Auto) 85.4 % Lymphocytes (%) (Auto) 7.7 % Monocytes (%) (Auto) 6.7 % Eosinophils (%) (Auto) 0.0 % Basophils (%) (Auto) 0.2 % Neutrophils # (Auto) 13.0 TH/MM3 Lymphocytes # (Auto) 1.2 TH/MM3 Monocytes # (Auto) 1.0 TH/MM3 Eosinophils # (Auto) 0.0 TH/MM3 Basophils # (Auto) 0.0 TH/MM3 CBC Comment DIFF FINAL Differential Comment Blood Urea Nitrogen 16 MG/DL Creatinine 0.50 MG/DL Random Glucose 94 MG/DL Total Protein 5.8 GM/DL Albumin 2.7 GM/DL Calcium Level 7.3 MG/DL Phosphorus Level 2.7 MG/DL Magnesium Level 1.6 MG/DL Alkaline Phosphatase 49 U/L Aspartate Amino Transf (AST/SGOT) 33 U/L Alanine Aminotransferase (ALT/SGPT) 42 U/L Total Bilirubin 1.0 MG/DL Sodium Level 134 MEQ/L Potassium Level 3.8 MEQ/L Chloride Level 99 MEQ/L Carbon Dioxide Level 23.3 MEQ/L Anion Gap 12 MEQ/L Estimat Glomerular Filtration Rate 125 ML/MIN Protein Corrected Calcium 8.0 MG/DL (Homer Dimas) Medical Decision Making Impression and Plan Impression: 1. Traumatic brain injury. No evidence of cerebral aneurysm on CT angiogram. Bilateral frontal orbital contusions. 2. Mild probable acute T11 compression fracture with mild likely chronic T3 compression fracture. No significant retropulsion or canal compromise 3. Thoracolumbar scoliosis. Moderately severe diffuse spinal degenerative disease. Chronic back pain. Patient with expected post-TBI symptoms, neurologically intact. Patient is unsure if the thoracolumbar pain she feels is any different than her chronic pain. Plan: Plan of care discussed with patient and Nursing. Neuro checks. Stat CT brain for any decrease in mental status. Mobilise patient w/assistance. TLSO brace when OOB. PT/OT eval & tx. Nonchemical DVT prophylaxis. CT brain in AM. (Homer Dimas) Attending Statement The exam, history, and the medical decision-making described in the above note were completed with the assistance of the mid-level provider. I reviewed and agree with the findings presented. I attest that I had a [id number] encounter with the patient on the same day, and personally performed and documented my assessment and findings in the medical record. Patient complains of moderate neck pain and headache. On my examination today, she remains awake and alert. She is now noted to have 2 small lacerations over the midline to left parieto- occipital region, do not appear deep to the cranium. Speech is clear and appropriate Cranial nerves II through XII tested and intact Sensation intact by touch all extremities Strength normal major flexion and extension groups all extremities Stable neurologic exam Mobilize out of bed with TLSO brace. Repeat CT scan in the morning to assess for possible volarly hemorrhagic contusion (Alvaro Fowler MD) Homer Dimas Mar 14, 2017 15:10 Alvaro Fowler MD Mar 14, 2017 16:10
[2017-03-14] MEDS: HYDROmorphone HCL PF 1 MG/ML VIAL IVP PRN (15:53)
[2017-03-14 16:00] VITALS: BP_SYST 139; BP_SYST 176; BP_DIAS 82; BP_DIAS 88; PULSE 88; PULSE 90; RESP 15; RESP 16; TEMP 96.9; TEMP 98.2; O2SAT 97; O2SAT 98
[2017-03-14] MEDS: MORPHINE SULFATE 4 MG/ML INJ IV PUSH PRN ×2 (19:05→22:25)
[2017-03-14] MEDS ORDERED: MAGN400S PO (19:21)
[2017-03-14] MEDS ORDERED: SENN8.6T15 PO (19:21)
--- NOTE | 2017-03-14 19:23 | HHI.FF ---
Face to Face Verification Diagnosis: (1) Alcohol intoxication (2) Fall (3) ICH (intracerebral hemorrhage) Physical Therapy Order: Evaluate and Treat, Improve ambulation, Strength and gait training Home Health Nursing Order: Medical education Signs/symptoms of disease process Medication education-adverse effect Nursing assessment with vital signs I have seen patient Gracy Stephens on 03/14/17. My clinical findings support the need for the requested home health care services because: Ltd mobility - disease progression Deconditioned w/ increased weakness Limited ability to care for self High risk of falls I certify that my clinical findings support that this patient is homebound because: Post-op weakness Impaired cognitive ability/safety Unsteady gait/balance Unsafe to leave home unassisted Unable to use public transportation Remedios Gtz Mar 14, 2017 19:23
[2017-03-14] MEDS ORDERED: WALKER WHEELS/F1 MIS (19:24)
[2017-03-15] VITALS (7 sets, daily range): BP systolic 147–172; BP diastolic 78–89; PULSE 78–104; RESP 18–20; TEMP 97.9–98.7; O2SAT 92–100
[2017-03-15] MEDS: ACETAMINOPHEN/HYDROcodone 325 MG/5 MG TAB PO PRN ×4 (02:24→16:21)
[2017-03-15] MEDS: SODIUM CHLOR 0.9% 1000 ML INJ 1,000 ML IV SCH (03:24)
[2017-03-15] MEDS: MORPHINE SULFATE 4 MG/ML INJ IV PUSH PRN ×6 (03:37→22:48)
[2017-03-15] MEDS: CHLORHEXIDINE GLUCONATE 2 % 1 PACK (2 CLOTHS) TOP SCH (04:01)
[2017-03-15 08:39] LABS: AUTOMATED NEUTROPHIL # 8.9 TH/MM3 (1.8-7.7); BASOPHIL # 0.1 TH/MM3 (0-0.2); BASOPHIL % 0.7 % (0.0-2.0); EOSINOPHIL % 0.3 % (0.0-4.0); HEMATOCRIT 21.9 % (35.0-46.0); HEMO FLAGS DIFF FINAL; LYMPH % 8.7 % (9.0-44.0); LYMPHOCYTE # 0.9 TH/MM3 (1.0-4.8); MEAN CELL VOLUME 97.4 FL (80.0-100.0); MEAN CORPUSCULAR HEMOGLOBIN 33.9 PG (27.0-34.0); MEAN CORPUSCULAR HGB CONC 34.8 % (32.0-36.0); MONO % 4.7 % (0.0-8.0); NEUT % 85.6 % (16.0-70.0); PLATELET COUNT 178 TH/MM3 (150-450); RED BLOOD COUNT 2.24 MIL/MM3 (4.00-5.30); RED CELL DISTRIBUTION WIDTH 12.5 % (11.6-17.2); WHITE BLOOD COUNT 10.4 TH/MM3 (4.0-11.0)
[2017-03-15] MEDS: SENNOSIDES 8.6 MG TAB PO SCH ×2 (08:44→21:00)
[2017-03-15] MEDS: FAMOTIDINE 20 MG TAB PO SCH ×2 (08:44→20:22)
[2017-03-15] MEDS: MAGNESIUM HYDROXIDE SUSP 30 ML CUP PO SCH ×2 (08:45→21:00)
[2017-03-15] MEDS: LACTULOSE SYRUP 20 GM/30 ML CUP PO SCH (08:45)
[2017-03-15 09:01] LABS: ALT (GPT) 35 U/L (10-53); ANION GAP 10 MEQ/L (5-15); AST (GOT) 32 U/L (15-37); BICARBONATE 27.1 MEQ/L (21.0-32.0); BLOOD UREA NITROGEN 8 MG/DL (7-18); CHLORIDE 94 MEQ/L (98-107); GLOMERULAR FILTRATION RATE 162 ML/MIN (>89); POTASSIUM 3.4 MEQ/L (3.5-5.1); SODIUM (NA) 131 MEQ/L (136-145)
[2017-03-15] MEDS ORDERED: POTASSIUM CHLORIDE 20 MEQ CONTROLLED RELEASE TAB PO ONE (09:15)
[2017-03-15 09:17] LABS: ALKALINE PHOSPHATASE 48 U/L (45-117); TOTAL BILIRUBIN ADULT 0.6 MG/DL (0.2-1.0)
--- NOTE | 2017-03-15 09:52 | RADRPT ---
EXAM DATE/TIME: 03/15/2017 09:39 [facility] COMPARISON: CTA BRAIN W 3D RECON, March 13, 2017, 12:21. CT BRAIN W/O CONTRAST, March 13, 2017, 11:57. INDICATIONS : Abnormal prior CT brain; Cephalgia. RADIATION DOSE: 44.08 CTDIvol (mGy) MEDICAL HISTORY : Subarachoid. SURGICAL HISTORY : None. ENCOUNTER: Subsequent ACUITY: 3 days PAIN SCALE: 10/10 LOCATION: Right cranial near eyebrow TECHNIQUE: Multiple contiguous axial images were obtained of the head. Using automated exposure control and adj ustment of the mA and/or kV according to patient size, radiation dose was kept as low as reasonably a chievable to obtain optimal diagnostic quality images. DICOM format image data is available electro nically for review and comparison. FINDINGS: There is a stable trace acute blood products layering along the sulci of the right frontal lobe in th e mid and low convexity and along the anterior interhemispheric fissure. No new blood products are id entified. There is no midline shift or herniation. Mild generalized atrophy is present. Posterior fos sa structures demonstrate no acute finding. Visualized sinuses are clear. No fracture is identified. CONCLUSION: Stable examination with a trace acute subarachnoid blood products layering along the right frontal lo be sulci and in the anterior interhemispheric fissure. Pillo Griffin MD on March 15, 2017 at 9:46 Board Certified Radiologist. This report was verified electronically.
[2017-03-15] MEDS: THIAMINE INJ 100 MG in SODIUM CHLORIDE 0.9% INJ 100 ML IV SCH (10:01)
--- NOTE | 2017-03-15 11:32 | HHI.PR ---
Subjective Subjective Notes PTD: 2 Patient lying in bed. "I'm in so much pain." "I was nauseous yesterday." Patient states that staff "haven't been putting the brace on me." Objective Vitals/I&O Vital Signs Date Time Temp Pulse Resp B/P (MAP) Pulse Ox O2 Delivery O2 Flow Rate FiO2 03/15/17 10:59 95 Nasal Cannula 1.00 03/15/17 08:00 97.9 99 18 161/89 (113) 03/14/17 09:21 21 Labs Laboratory Tests Test 03/15/17 08:26 White Blood Count 10.4 Red Blood Count 2.24 Hemoglobin 7.6 Hematocrit 21.9 Mean Corpuscular Volume 97.4 Mean Corpuscular Hemoglobin 33.9 Mean Corpuscular Hemoglobin Concent 34.8 Red Cell Distribution Width 12.5 Platelet Count 178 Mean Platelet Volume 7.8 Neutrophils (%) (Auto) 85.6 Lymphocytes (%) (Auto) 8.7 Monocytes (%) (Auto) 4.7 Eosinophils (%) (Auto) 0.3 Basophils (%) (Auto) 0.7 Neutrophils # (Auto) 8.9 Lymphocytes # (Auto) 0.9 Monocytes # (Auto) 0.5 Eosinophils # (Auto) 0.0 Basophils # (Auto) 0.1 CBC Comment DIFF FINAL Differential Comment Blood Urea Nitrogen 8 Creatinine 0.40 Random Glucose 107 Total Protein 5.6 Albumin 2.8 Calcium Level 8.6 Alkaline Phosphatase 48 Aspartate Amino Transf (AST/SGOT) 32 Alanine Aminotransferase (ALT/SGPT) 35 Total Bilirubin 0.6 Sodium Level 131 Potassium Level 3.4 Chloride Level 94 Carbon Dioxide Level 27.1 Anion Gap 10 Estimat Glomerular Filtration Rate 162 Radiology Last [address] 03/15/17 0600 Signed Impressions: Service Date/Time: Wednesday, March 15, 2017 09:39 - CONCLUSION: Stable examination with a trace acute subarachnoid blood products layering along the right frontal lobe sulci and in the anterior interhemispheric fissure. Pillo Griffin MD Narrative Exam GENERAL: This is a 61-year-old female lying in bed. Extremely painful. SKIN: Warm and dry. HEAD: Normocephalic. Small right eyelid laceration. Open to air. EYES: PERRLA ENT: No nasal bleeding or discharge. Mucous membranes pink and moist. NECK: Trachea midline. No JVD. CARDIOVASCULAR: Regular rate and rhythm. RESPIRATORY: No accessory muscle use. Lungs are clear to auscultation. Breath sounds equal bilaterally. No distress or dyspnea. GASTROINTESTINAL: BS + x 4 quads. Abdomen soft, non-tender, nondistended. MUSCULOSKELETAL: Extremities without cyanosis, or edema. + peripheral pulses x 4 extremities. Warm with good capillary refill and sensation. MAEW. NEUROLOGICAL: Awake and alert. Normal speech and pattern. A/P Problem List: (1) Traumatic compression fracture of T3 thoracic vertebra ICD Codes: S22.030A - Wedge compression fracture of third thoracic vertebra, initial encounter for closed fracture Status: Acute (2) T11 vertebral fracture ICD Codes: S22.089A - Unspecified fracture of T11-T12 vertebra, initial encounter for closed fracture Status: Acute (3) Alcohol intoxication ICD Codes: F10.929 - Alcohol use, unspecified with intoxication, unspecified Status: Acute (4) Fall ICD Codes: W19.XXXA - Unspecified fall, initial encounter Status: Acute (5) ICH (intracerebral hemorrhage) ICD Codes: I61.9 - Nontraumatic intracerebral hemorrhage, unspecified Status: Acute Assessment and Plan This is a 61-year-old female who was found down. She was heavily intoxicated. EtOH 299. She had numerous bruises is various stages on all of her limbs. Initial pupils: L3, R2. PMHx: COPD. ETOH. Back pain - received steroid injections monthly INJURIES: RIGHT eye laceration Parenchymal hemorrhage w SAH (suspicious for ruptured aneurysm) No aneurysm T3 compression fracture T11 endplate fracture L3 - L5 neural foramina narrowing on left and right Procedures: Consults: [facility]. Neurosurgery. Case management. Diet: Regular diet. Tolerating po diet. Encourage good po intake with each meal. Pulmonary: Encourage good pulmonary toileting. IS at bedside and pt encouraged to use. Rationale for use explained to patient, and verbalized understanding. PAIN Management: [place] 5-10 mg every 4 hours. Morphine 2 mg every 4 hours. Activity: OOB with TLSO brace. PT and OT ordered. GI prophylaxis: Pepcid BID. Bowel regimen: Senokot BID. MOM BID. Lactulose daily. LBM: 0 DVT prophylaxis: Mechanical VTE with SCDs. Chemical management TBD once cleared by neurosurgery. DC Planning: Case management consulted for assistance with final discharge disposition. PT recommends home health care. [id number] completed. DME ordered. Emotional support provided to patient and family at bedside and plan of care discussed. Discussed with RN at bedside. Patient is hemodynamically stable and being managed on the med/surg floor. The trauma team will round each day, and evaluate plan of care on a daily basis. Parenchymal hemorrhage w SAH (suspicious for ruptured aneurysm) No aneurysm Neurosurgery consulted and assisting in management and care 03/15: Repeat CT brain - stable examination with a trace acute subarachnoid blood products layering along the right frontal lobe sulci and in the anterior interhemispheric fissure. No known neurosurgical intervention at this time. Supportive care Serial neuro checks Repeat CT for any change in neuro status Pain management T3 compression fracture T11 endplate fracture L3 - L5 neural foramina narrowing on left and right Neurosurgery consulted and assisting in management and care Supportive care Pain management PT and OT ordered Encourage out of bed with TLSO brace Problem Qualifiers (1) Traumatic compression fracture of T3 thoracic vertebra: Qualified Codes: S22.030A - Wedge compression fracture of third thoracic vertebra, initial encounter for closed fracture (2) T11 vertebral fracture: Qualified Codes: S22.089A - Unspecified fracture of t11-T12 vertebra, initial encounter for closed fracture (3) Alcohol intoxication: Qualified Codes: F10.920 - Alcohol use, unspecified with intoxication, uncomplicated (4) Fall: Qualified Codes: W19.XXXA - Unspecified fall, initial encounter (5) ICH (intracerebral hemorrhage): Qualified Codes: I61.9 - Nontraumatic intracerebral hemorrhage, unspecified Remedios Gtz Mar 15, 2017 11:32
[2017-03-15] MEDS: ONDANSETRON HCL 4 MG/2 ML VIAL IV PRN (16:23)
[2017-03-15] MEDS ORDERED: PROMETHAZINE HCL 25 MG SUPP RECTAL PRN (19:00)
--- NOTE | 2017-03-15 21:42 | HHI.NSPN ---
History Chief Complaint: Headache and aches all over. Interval History Persistent headache, mild neck pain. Exam Results Vital Signs Date Time Temp Pulse Resp B/P (MAP) Pulse Ox O2 Delivery O2 Flow Rate FiO2 03/15/17 16:00 98.0 104 18 159/79 (105) 97 03/15/17 13:01 Room Air 03/15/17 10:59 1.00 03/14/17 09:21 21 Physical Examination GENERAL: Resting quite this evening. Sleepy but arouses readily to voice. SKIN: Numerous abrasions and ecchymotic area to head, face and extremities. HEENT: Normocephalic. Blood matted in hair. Right supraorbital/forehead lacerations, without drainage. NECK: Moderately diffuse TTP lower midline cervical spine, no JVD, trachea midline. CARDIOVASCULAR: Regular rhythm RESPIRATORY: Clear and nonlabored MUSCULOSKELETAL: Multiple abrasions/lacerations & ecchymosis to all extremities which are TTP, with the worse being the right knee. The thoracolumbar spine is moderately tender diffuse in the paraspinous musculature NEUROLOGICAL: AAOx3. Speech clear & appropriate. Follows simple commands w/o difficulty. Extraocular movements and facial motor movements intact Sensation intact to light touch to all extremities. Motor strength symmetrical to all major flexion & extension muscle groups. Lab, Micro, Other Results Laboratory Tests Test 03/15/17 08:26 Red Blood Count 2.24 MIL/MM3 Hemoglobin 7.6 GM/DL Hematocrit 21.9 % Neutrophils (%) (Auto) 85.6 % Lymphocytes (%) (Auto) 8.7 % Neutrophils # (Auto) 8.9 TH/MM3 Lymphocytes # (Auto) 0.9 TH/MM3 Creatinine 0.40 MG/DL Random Glucose 107 MG/DL Total Protein 5.6 GM/DL Albumin 2.8 GM/DL Sodium Level 131 MEQ/L Potassium Level 3.4 MEQ/L Chloride Level 94 MEQ/L 03/15/17 CT scan head images reviewed. Agree with findings as noted below: Head CT 03/15/17 0600 Signed Impressions: Service Date/Time: Wednesday, March 15, 2017 09:39 - CONCLUSION: Stable examination with a trace acute subarachnoid blood products layering along the right frontal lobe sulci and in the anterior interhemispheric fissure. Pillo Griffin MD Medical Decision Making Impression and Plan Impression: 1. Mild traumatic brain injury. Stable CT scan 03/15/17 2. Chronic versus acute T3 and T11 fractures without subluxation or canal compromise 3. Scalp and forehead lacerations 4. Numerous extremity abrasions Plan: Patient is stable to continue to increase activity as tolerated No neurosurgical intervention anticipated at this time Alvaro Fowler MD Mar 15, 2017 21:42
[2017-03-16] VITALS (7 sets, daily range): BP systolic 136–163; BP diastolic 69–82; PULSE 84–100; RESP 16–22; TEMP 97.8–98.7; O2SAT 18–99
[2017-03-16] MEDS: ACETAMINOPHEN/HYDROcodone 325 MG/5 MG TAB PO PRN ×4 (01:33→20:50)
[2017-03-16] MEDS: MORPHINE SULFATE 4 MG/ML INJ IV PUSH PRN (04:42)
[2017-03-16] MEDS: SODIUM CHLORIDE 0.9% FLUSH 10 ML FLUSH IV FLUSH PRN ×2 (08:15→11:55)
[2017-03-16] MEDS: FAMOTIDINE 20 MG TAB PO SCH ×2 (08:16→20:50)
[2017-03-16] MEDS: MAGNESIUM HYDROXIDE SUSP 30 ML CUP PO SCH ×2 (08:17→20:49)
[2017-03-16] MEDS: LACTULOSE SYRUP 20 GM/30 ML CUP PO SCH (08:17)
[2017-03-16] MEDS: SENNOSIDES 8.6 MG TAB PO SCH ×2 (08:33→20:50)
[2017-03-16] MEDS: THIAMINE INJ 100 MG in SODIUM CHLORIDE 0.9% INJ 100 ML IV SCH (08:46)
--- NOTE | 2017-03-16 09:34 | HHI.NSPN ---
History Chief Complaint: Headache and aches all over. Interval History Persistent headache, mild neck pain. Complains of rib and back pain. Exam Results Vital Signs Date Time Temp Pulse Resp B/P (MAP) Pulse Ox O2 Delivery O2 Flow Rate FiO2 03/16/17 08:00 97.8 84 22 158/76 (103) 97 03/16/17 05:57 Nasal Cannula 1.00 03/14/17 09:21 21 Intake and Output 03/16/17 03/16/17 03/17/17 08:00 16:00 00:00 Intake Total 240 ml Balance 240 ml Physical Examination GENERAL: SKIN: Numerous abrasions and ecchymotic area to head, face and extremities. HEENT: Normocephalic. Blood matted in hair. Right supraorbital/forehead lacerations, without drainage. NECK: Moderately diffuse TTP lower midline cervical spine, no JVD, trachea midline. CARDIOVASCULAR: Regular rhythm RESPIRATORY: Clear and nonlabored MUSCULOSKELETAL: Multiple abrasions/lacerations & ecchymosis to all extremities which are TTP, with the worse being the right knee. The thoracolumbar spine is moderately tender diffuse in the paraspinous musculature Positive tenderness along the left lateral costal margin. NEUROLOGICAL: AAOx3. Speech clear & appropriate. Follows simple commands w/o difficulty. Extraocular movements and facial motor movements intact Sensation intact to light touch to all extremities. Motor strength symmetrical to all major flexion & extension muscle groups. Medical Decision Making Impression and Plan Impression: 1. Mild traumatic brain injury. Stable CT scan 03/15/17 2. Chronic versus acute T3 and T11 fractures without subluxation or canal compromise 3. Scalp and forehead lacerations 4. Numerous extremity abrasions Plan: Patient is stable to continue to increase activity as tolerated Activity level has been diminished by persistent nausea and somewhat diffuse muscular pain and tenderness. Continue physical therapy and increase diet as tolerated No neurosurgical intervention anticipated at this time Alvaro Fowler MD Mar 16, 2017 09:34
--- NOTE | 2017-03-16 11:11 | HHI.PR ---
Subjective Subjective Notes PTD: 3 Pt continues with c/o headache and nausea. Pt does not want to be discharged, because she states that she has no one to take care of her at home. She is agreeable to DC tomorrow. Objective Vitals/I&O Vital Signs Date Time Temp Pulse Resp B/P (MAP) Pulse Ox O2 Delivery O2 Flow Rate FiO2 03/16/17 08:00 97.8 84 22 158/76 (103) 97 03/16/17 05:57 Nasal Cannula 1.00 03/14/17 09:21 21 Labs Laboratory Tests Test 03/13/17 11:50 03/13/17 14:50 03/13/17 15:58 03/13/17 18:54 Bedside Hemoglobin 10.2 G/DL Bedside Hematocrit 30.0 % Differential Total Cells Counted 100 Neutrophils % (Manual) 89 % Band Neutrophils % 4 % Lymphocytes % 2 % Monocytes % 5 % Neutrophils # (Manual) 23.3 TH/MM3 Platelet Estimate NORMAL Platelet Morphology Comment ENLARGED Red Cell Morphology Comment NORMAL Prothrombin Time 10.3 SEC Prothromb Time International Ratio 0.9 RATIO Activated Partial Thromboplast Time 23.0 SEC Bedside Sodium 132 MMOL/L Bedside Potassium 3.4 MMOL/L Bedside Chloride 94 MMOL/L Bedside Blood Urea Nitrogen 20 MG/DL Bedside Creatinine 1.1 MG/DL Bedside Glucose 86 MG/DL Direct Bilirubin 0.2 MG/DL Indirect Bilirubin 0.6 MG/DL Gamma Glutamyl Transpeptidase 22 U/L Total Creatine Kinase 443 U/L Creatine Kinase MB 10.5 NG/ML Creatine Kinase MB % 2.4 % Ethyl Alcohol Level 299 MG/DL Urine Opiates Screen NEG Urine Barbiturates Screen NEG Urine Amphetamines Screen NEG Urine Benzodiazepines Screen NEG Urine Cocaine Screen NEG Urine Cannabinoids Screen NEG Lactic Acid Level 2.9 mmol/L Fibrinogen 240 mg/dL Test 03/14/17 04:49 03/15/17 08:26 Protein Corrected Calcium 8.0 MG/DL Blood Urea Nitrogen 16 MG/DL 8 MG/DL Creatinine 0.50 MG/DL 0.40 MG/DL Random Glucose 94 MG/DL 107 MG/DL Total Protein 5.8 GM/DL 5.6 GM/DL Albumin 2.7 GM/DL 2.8 GM/DL Calcium Level 7.3 MG/DL 8.6 MG/DL Phosphorus Level 2.7 MG/DL Magnesium Level 1.6 MG/DL Alkaline Phosphatase 49 U/L 48 U/L Aspartate Amino Transf (AST/SGOT) 33 U/L 32 U/L Alanine Aminotransferase (ALT/SGPT) 42 U/L 35 U/L Total Bilirubin 1.0 MG/DL 0.6 MG/DL Sodium Level 134 MEQ/L 131 MEQ/L Potassium Level 3.8 MEQ/L 3.4 MEQ/L Chloride Level 99 MEQ/L 94 MEQ/L Carbon Dioxide Level 23.3 MEQ/L 27.1 MEQ/L White Blood Count 10.4 TH/MM3 Red Blood Count 2.24 MIL/MM3 Hemoglobin 7.6 GM/DL Hematocrit 21.9 % Mean Corpuscular Volume 97.4 FL Mean Corpuscular Hemoglobin 33.9 PG Mean Corpuscular Hemoglobin Concent 34.8 % Red Cell Distribution Width 12.5 % Platelet Count 178 TH/MM3 Mean Platelet Volume 7.8 FL Neutrophils (%) (Auto) 85.6 % Lymphocytes (%) (Auto) 8.7 % Monocytes (%) (Auto) 4.7 % Eosinophils (%) (Auto) 0.3 % Basophils (%) (Auto) 0.7 % Neutrophils # (Auto) 8.9 TH/MM3 Lymphocytes # (Auto) 0.9 TH/MM3 Monocytes # (Auto) 0.5 TH/MM3 Eosinophils # (Auto) 0.0 TH/MM3 Basophils # (Auto) 0.1 TH/MM3 CBC Comment DIFF FINAL Differential Comment Anion Gap 10 MEQ/L Estimat Glomerular Filtration Rate 162 ML/MIN Radiology Head CT 03/15/17 0600 Signed Impressions: Service Date/Time: Wednesday, March 15, 2017 09:39 - CONCLUSION: Stable examination with a trace acute subarachnoid blood products layering along the right frontal lobe sulci and in the anterior interhemispheric fissure. Pillo Griffin MD Narrative Exam GENERAL: This is a 61-year-old female lying in bed. SKIN: Warm and dry. HEAD: Normocephalic. Small right eyelid laceration. Open to air. EYES: PERRLA ENT: No nasal bleeding or discharge. Mucous membranes pink and moist. NECK: Trachea midline. No JVD. CARDIOVASCULAR: Regular rate and rhythm. RESPIRATORY: No accessory muscle use. Lungs are clear to auscultation. Breath sounds equal bilaterally. No distress or dyspnea. GASTROINTESTINAL: BS + x 4 quads. Abdomen soft, non-tender, nondistended. MUSCULOSKELETAL: Extremities without cyanosis, or edema. + peripheral pulses x 4 extremities. Warm with good capillary refill and sensation. MAEW. NEUROLOGICAL: Awake and alert. Normal speech and pattern. A/P Problem List: (1) Traumatic compression fracture of T3 thoracic vertebra ICD Codes: S22.030A - Wedge compression fracture of third thoracic vertebra, initial encounter for closed fracture Status: Acute (2) T11 vertebral fracture ICD Codes: S22.089A - Unspecified fracture of T11-T12 vertebra, initial encounter for closed fracture Status: Acute (3) Alcohol intoxication ICD Codes: F10.929 - Alcohol use, unspecified with intoxication, unspecified Status: Acute (4) Fall ICD Codes: W19.XXXA - Unspecified fall, initial encounter Status: Acute (5) ICH (intracerebral hemorrhage) ICD Codes: I61.9 - Nontraumatic intracerebral hemorrhage, unspecified Status: Acute Assessment and Plan This is a 61-year-old female who was found down. She was heavily intoxicated. EtOH 299. She had numerous bruises is various stages on all of her limbs. Initial pupils: L3, R2. PMHx: COPD. ETOH. Back pain - received steroid injections monthly INJURIES: RIGHT eye laceration Parenchymal hemorrhage w SAH (suspicious for ruptured aneurysm) No aneurysm T3 compression fracture T11 endplate fracture L3 - L5 neural foramina narrowing on left and right Procedures: Consults: [facility]. Neurosurgery. Case management. Diet: Regular diet. Encourage good po intake with each meal. Nauseous. Nausea. Zofran. Phenergan suppository. Add Decadron 4 mg IV x 1 dose stat. Pulmonary: Encourage good pulmonary toileting. IS at bedside and pt encouraged to use. Rationale for use explained to patient, and verbalized understanding. PAIN Management: Nash 5-10 mg every 4 hours. DC Morphine due to severe nausea. Activity: OOB with TLSO brace. PT and OT ordered. GI prophylaxis: Pepcid BID. Bowel regimen: Senokot BID. MOM BID. Lactulose daily. LBM: 0 DVT prophylaxis: Mechanical VTE with SCDs. Chemical management TBD once cleared by neurosurgery. DC Planning: Case management consulted for assistance with final discharge disposition. PT recommends home health care. [id number] completed. DME ordered. Plan for DC tomorrow. Emotional support provided to patient and family at bedside and plan of care discussed. Discussed with RN at bedside. Patient is hemodynamically stable and being managed on the med/surg floor. The trauma team will round each day, and evaluate plan of care on a daily basis. Parenchymal hemorrhage w SAH (suspicious for ruptured aneurysm) No aneurysm Neurosurgery consulted and assisting in management and care 03/15: Repeat CT brain - stable examination with a trace acute subarachnoid blood products layering along the right frontal lobe sulci and in the anterior interhemispheric fissure. No known neurosurgical intervention at this time. Supportive care Serial neuro checks Repeat CT for any change in neuro status Pain management Pt c/o headache Pt c/o nausea - added Decadron 4 mg IV x 1 dose. T3 compression fracture T11 endplate fracture L3 - L5 neural foramina narrowing on left and right Neurosurgery consulted and assisting in management and care Supportive care Pain management PT and OT ordered Encourage out of bed with TLSO brace Problem Qualifiers (1) Traumatic compression fracture of T3 thoracic vertebra: Qualified Codes: S22.030A - Wedge compression fracture of third thoracic vertebra, initial encounter for closed fracture (2) T11 vertebral fracture: Qualified Codes: S22.089A - Unspecified fracture of t11-T12 vertebra, initial encounter for closed fracture (3) Alcohol intoxication: Qualified Codes: F10.920 - Alcohol use, unspecified with intoxication, uncomplicated (4) Fall: Qualified Codes: W19.XXXA - Unspecified fall, initial encounter (5) ICH (intracerebral hemorrhage): Qualified Codes: I61.9 - Nontraumatic intracerebral hemorrhage, unspecified Remedios Gtz Mar 16, 2017 11:11
[2017-03-16] MEDS: LORazepam 2 MG/ML VIAL IV PUSH PRN ×2 (11:55→22:21)
[2017-03-16] MEDS ORDERED: DEXAMETHASONE SOD PHOS 4 MG/ML VIAL IV PUSH ONE (13:00)
[2017-03-16] MEDS ORDERED: ACETAMINOPHEN 1000 MG/100 ML VIAL IV ONE (13:00)
[2017-03-17] VITALS (8 sets, daily range): BP systolic 119–182; BP diastolic 62–89; PULSE 86–95; RESP 18; TEMP 97.8–98.3; O2SAT 94–100
[2017-03-17] MEDS: ACETAMINOPHEN/HYDROcodone 325 MG/5 MG TAB PO PRN ×5 (05:23→21:41)
[2017-03-17] MEDS: MAGNESIUM HYDROXIDE SUSP 30 ML CUP PO SCH ×2 (09:00→21:33)
[2017-03-17] MEDS: LACTULOSE SYRUP 20 GM/30 ML CUP PO SCH (09:00)
[2017-03-17] MEDS: SENNOSIDES 8.6 MG TAB PO SCH ×2 (09:00→21:36)
[2017-03-17] MEDS: FAMOTIDINE 20 MG TAB PO SCH ×2 (09:15→21:33)
[2017-03-17] MEDS: THIAMINE INJ 100 MG in SODIUM CHLORIDE 0.9% INJ 100 ML IV SCH (09:16)
[2017-03-17] MEDS: ONDANSETRON HCL 4 MG/2 ML VIAL IV PRN (09:20)
[2017-03-17] MEDS ORDERED: HYDR-3366 PO (11:03)
--- NOTE | 2017-03-17 11:21 | HHI.PR ---
Subjective Subjective Notes PTD: 4 Patient states she's doing "terrible." Patient complains of pain 02/12. Pain is in her head, neck, and back. Patient is asking repeatedly for pain medications for discharge "I can't get in to my pain management doctor till 03/27. I was supposed to go on 03/16. I have no more pain medications at home." Patient states she has not been able to get in touch with her sister. Patient does not have keys to get into her house. Objective Vitals/I&O Vital Signs Date Time Temp Pulse Resp B/P (MAP) Pulse Ox O2 Delivery O2 Flow Rate FiO2 03/17/17 07:56 97.9 87 18 167/84 (111) 99 03/16/17 21:00 Room Air 03/16/17 05:57 1.00 03/14/17 09:[address] 03/15/17 0600 Signed Impressions: Service Date/Time: Wednesday, March 15, 2017 09:39 - CONCLUSION: Stable examination with a trace acute subarachnoid blood products layering along the right frontal lobe sulci and in the anterior interhemispheric fissure. Pillo Griffin MD Narrative Exam GENERAL: This is a 61-year-old female lying in bed. Anxious. SKIN: Warm and dry. HEAD: Normocephalic. Small forehead laceration. Open to air. EYES: PERRLA ENT: No nasal bleeding or discharge. Mucous membranes pink and moist. NECK: Trachea midline. No JVD. CARDIOVASCULAR: Regular rate and rhythm. RESPIRATORY: No accessory muscle use. Lungs are clear to auscultation. Breath sounds equal bilaterally. No distress or dyspnea. GASTROINTESTINAL: BS + x 4 quads. Abdomen soft, non-tender, nondistended. MUSCULOSKELETAL: Extremities without cyanosis, or edema. + peripheral pulses x 4 extremities. Warm with good capillary refill and sensation. MAEW. NEUROLOGICAL: Awake and alert. Patient speaking very fast upon rounds. A/P Problem List: (1) Traumatic compression fracture of T3 thoracic vertebra ICD Codes: S22.030A - Wedge compression fracture of third thoracic vertebra, initial encounter for closed fracture Status: Acute (2) T11 vertebral fracture ICD Codes: S22.089A - Unspecified fracture of T11-T12 vertebra, initial encounter for closed fracture Status: Acute (3) Alcohol intoxication ICD Codes: F10.929 - Alcohol use, unspecified with intoxication, unspecified Status: Acute (4) Fall ICD Codes: W19.XXXA - Unspecified fall, initial encounter Status: Acute (5) ICH (intracerebral hemorrhage) ICD Codes: I61.9 - Nontraumatic intracerebral hemorrhage, unspecified Status: Acute Assessment and Plan This is a 61-year-old female who was found down. She was heavily intoxicated. EtOH 299. She had numerous bruises is various stages on all of her limbs. Initial pupils: L3, R2. PMHx: COPD. ETOH. Back pain - sees a body technician/painter and receives steroid injections monthly INJURIES: Parenchymal hemorrhage w SAH (suspicious for ruptured aneurysm) No aneurysm T3 compression fracture T11 endplate fracture L3 - L5 neural foramina narrowing on left and right Procedures: Consults: [facility]CM. Neurosurgery. Case management. Diet: Regular diet. Encourage good po intake with each meal. Nauseous. Nausea. Zofran. Phenergan suppository. Pulmonary: Encourage good pulmonary toileting. IS at bedside and pt encouraged to use. Rationale for use explained to patient, and verbalized understanding. PAIN Management: Rossiter 5-10 mg every 4 hours. Activity: OOB with TLSO brace. PT and OT ordered. GI prophylaxis: Pepcid BID. Bowel regimen: Senokot BID. MOM BID. Lactulose daily. LBM: 0 DVT prophylaxis: Mechanical VTE with SCDs. Chemical management TBD once cleared by neurosurgery. DC Planning: Case management consulted for assistance with final discharge disposition. PT recommends home health care. [id number] completed. DME ordered. Patient is cleared to discharge from a trauma surgery standpoint to home. Patient is attempting to get in touch with her sister - for an extra set of keys so she can get home into her house. Emotional support provided to patient at bedside and plan of care discussed. Discussed with RN at bedside. Patient is hemodynamically stable and being managed on the med/surg floor. The trauma team will round each day, and evaluate plan of care on a daily basis. Parenchymal hemorrhage w SAH (suspicious for ruptured aneurysm) No aneurysm Neurosurgery consulted and assisting in management and care 03/15: Repeat CT brain - stable examination with a trace acute subarachnoid blood products layering along the right frontal lobe sulci and in the anterior interhemispheric fissure. No known neurosurgical intervention at this time. Supportive care Serial neuro checks Repeat CT for any change in neuro status Pain management Pt c/o headache Pt c/o nausea - T3 compression fracture T11 endplate fracture L3 - L5 neural foramina narrowing on left and right Neurosurgery consulted and assisting in management and care Supportive care Pain management PT and OT ordered Encourage out of bed with TLSO brace The exam, history, and the medical decision-making described in the above note were completed with the assistance of the mid-level provider. I reviewed and agree with the findings presented. I attest that I had a [id number] encounter with the patient on the same day, and personally performed and documented my assessment and findings in the medical record. Problem Qualifiers (1) Traumatic compression fracture of T3 thoracic vertebra: Qualified Codes: S22.030A - Wedge compression fracture of third thoracic vertebra, initial encounter for closed fracture (2) T11 vertebral fracture: Qualified Codes: S22.089A - Unspecified fracture of t11-T12 vertebra, initial encounter for closed fracture (3) Alcohol intoxication: Qualified Codes: F10.920 - Alcohol use, unspecified with intoxication, uncomplicated (4) Fall: Qualified Codes: W19.XXXA - Unspecified fall, initial encounter (5) ICH (intracerebral hemorrhage): Qualified Codes: I61.9 - Nontraumatic intracerebral hemorrhage, unspecified Remedios Gtz Mar 17, 2017 11:21 Uvaldo Colon MD Mar 22, 2017 16:44
--- NOTE | 2017-03-17 12:34 | HHI.NSPN ---
(Homer Dimas) History Chief Complaint: Headache and nause with dry heaves. (Homer Dimas) Interval History 03/13: 61-year-old female brought to the emergency room this morning after being found by her family with altered mental status in the home, after being reportedly seen with normal mental status last evening. The patient us and have good recall for last evening's events. She indicates that she was drinking alcohol. States that she usually does not drink significant amounts of alcohol. EtOH level 299 in the emergency room. There is apparently a lot of blood scattered throughout the house. She has been noted to have a forehead fracture, numerous extremity abrasions and contusions. She complains of neck pain and exacerbation of her usual chronic back pain. Complains of diffuse aching and discomfort throughout her body. Positive headache. No dizziness. No vertigo. No complaint of chest pain or shortness of breath. No blurred vision or diplopia. 03/14: The patient is awake and alert. She complains of a headache, nausea and aching all over. She also reports anxiety. She did say that the Ativan and pain medication did help her. 03/15: Persistent headache, mild neck pain. 03/16: Persistent headache, mild neck pain. Complains of rib and back pain. 03/17: The patient is asleep but awakens to verbal stimuli. She complains of a frontal headache and nausea with the dry heaves, especially when she gets up. She states that is why she doesn't get up. (Homer Dimas) System Review Comments Constitutional: Patient denies any fever or chills. HEENT: Patient complains of aching to the back of the head. She denies any visual or hearing difficulty. Respiratory: Patient has left-sided chest wall/rib pain. She denies any shortness of breath or productive cough. Cardiovascular: Patient denies any chest pain, palpitations or irregular heartbeat. Gastrointestinal: Patient complains of nausea and dry heaves. She denies any abdominal pain, vomiting or incontinence of stool. Genitourinary: Patient denies any incontinence of urine. Musculoskeletal: Patient complains of lower neck pain and chronic back pain. She complains of pain to the right knee and aches all over. Integumentary: Patient complains of multiple wounds especially to the back of the head and the right knee. Neurologic: Patient complains of a headache and some dizziness. She denies any numbness or tingling. (Homer Dimas) Exam Results 03/15/17 03/15/17 03/16/17 03/16/17 03/17/17 03/17/17 06:00 18:00 06:00 18:00 06:00 18:00 Intake Total 480 ml 101 ml Balance 480 ml 101 ml Intake Oral 480 ml IV Total 101 ml # Voids 4 4 Vital Signs Date Time Temp Pulse Resp B/P (MAP) Pulse Ox O2 Delivery O2 Flow Rate FiO2 03/17/17 11:49 97.8 90 18 182/89 (120) 100 03/17/17 08:11 99 21 03/17/17 07:56 97.9 87 18 167/84 (111) 99 03/17/17 04:00 98.1 95 18 155/87 (109) 98 03/17/17 00:00 98.0 86 18 119/62 (81) 94 03/16/17 21:00 98 Room Air 03/16/17 20:00 98.2 92 18 145/69 (94) 97 03/16/17 16:03 Room Air 03/16/17 16:00 98.7 100 18 136/82 (100) 18 03/16/17 12:00 98.5 88 18 163/79 (107) 98 03/16/17 08:00 97.8 84 22 158/76 (103) 97 03/16/17 05:57 97 Nasal Cannula 1.00 03/16/17 04:00 98.0 88 16 140/80 (100) 98 03/16/17 00:00 98.1 89 17 142/76 (98) 99 03/15/17 20:25 96 Nasal Cannula 1.00 03/15/17 20:00 97.9 92 20 164/83 (110) 96 03/15/17 20:00 78 03/15/17 16:00 98.0 104 18 159/79 (105) 97 03/15/17 13:01 97 Room Air 03/15/17 12:03 98.1 92 18 152/87 (108) 96 03/15/17 10:59 95 Nasal Cannula 1.00 03/15/17 08:00 97.9 99 18 161/89 (113) 100 03/15/17 04:00 98.4 83 18 172/78 (109) 94 03/15/17 00:00 98.7 91 18 147/85 (105) 92 03/14/17 17:59 Nasal Cannula 1.00 03/14/17 16:00 98.2 90 16 176/82 (113) 97 03/14/17 16:00 96.9 88 15 139/88 (105) 98 (Homer Dimas) Physical Examination GENERAL: Asleep but awakens to verbal and readily interacts. No apparent distress. Mildly uncomfortable when she turns. SKIN: Numerous abrasions and ecchymotic area to head, face and extremities healing w/o complications. HEENT: Normocephalic. Posterior scalp mildly TTP. Right supraorbital/forehead laceration healing w/o complications. NECK: Mildly diffuse TTP lower midline cervical spine, no JVD, trachea midline. CARDIOVASCULAR: S1S2 w/RRR w/o M/G/R, radial & pedal pulses 2+ bilaterally, cap refill < 2 sec, no pedal edema. RESPIRATORY: CTAB w/o W/R/R, equal excursion, nonlaboured, on RA. MUSCULOSKELETAL: Multiple abrasions/lacerations & ecchymosis to all extremities , TTP right knee. The thoracolumbar spine is minimally TTP. TTP left lateral costal margin. NEUROLOGICAL: Asleep but awakens to verbal stimulation, after that alert & orient to person, place & time. Speech clear & appropriate. Follows simple commands w/o difficulty. Sensation intact to light touch to all extremities. Motor strength symmetrical to all major flexion & extension muscle groups. (Homer Dimas) Medical Decision Making Impression and Plan Impression: 1. Traumatic brain injury. No evidence of cerebral aneurysm on CT angiogram. Bilateral frontal orbital contusions. 2. Mild probable acute T11 compression fracture with mild likely chronic T3 compression fracture. No significant retropulsion or canal compromise 3. Thoracolumbar scoliosis. Moderately severe diffuse spinal degenerative disease. Chronic back pain. Patient with expected post-TBI symptoms, neurologically intact. Plan: Plan of care discussed with patient. Neuro checks. Stat CT brain for any decrease in mental status. Mobilise patient w/assistance. TLSO brace when OOB. PT/OT eval & tx. Nonchemical DVT prophylaxis. (Homer Dimas) Attending Statement The exam, history, and the medical decision-making described in the above note were completed with the assistance of the mid-level provider. I reviewed and agree with the findings presented. I attest that I had a [id number] encounter with the patient on the same day, and personally performed and documented my assessment and findings in the medical record. Neurologic exam remained stable today Mobilized out of bed with TLSO brace as tolerated No surgical intervention anticipated at this point (Alvaro Fowler MD) Homer Dimas Mar 17, 2017 12:34 Alvaro Fowler MD Apr 13, 2017 07:16
[2017-03-17] MEDS: SODIUM CHLORIDE 0.9% FLUSH 10 ML FLUSH IV FLUSH PRN (21:34)
[2017-03-17] MEDS: LORazepam 2 MG/ML VIAL IV PUSH PRN (23:21)
[2017-03-18 00:04] VITALS: BP 166/81; PULSE 88; RESP 18; TEMP 98.3; O2SAT 97
[2017-03-18 04:00] VITALS: BP 160/76; PULSE 90; RESP 20; TEMP 97.6; O2SAT 98
[2017-03-18] MEDS: ACETAMINOPHEN/HYDROcodone 325 MG/5 MG TAB PO PRN ×3 (04:19→12:22)
[2017-03-18] MEDS: ALUMINUM/MAGNESIUM/SIMETH 30 ML CUP PO PRN (04:22)
[2017-03-18] MEDS ORDERED: BISACODYL EC 5 MG TABEC PO ONE (07:30)
[2017-03-18] MEDS ORDERED: BISACODYL 10 MG SUPP RECTAL ONE (07:30)
[2017-03-18] MEDS: FAMOTIDINE 20 MG TAB PO SCH (08:18)
[2017-03-18] MEDS: SENNOSIDES 8.6 MG TAB PO SCH (08:19)
[2017-03-18] MEDS: THIAMINE INJ 100 MG in SODIUM CHLORIDE 0.9% INJ 100 ML IV SCH (08:20)
[2017-03-18] MEDS: ONDANSETRON HCL 4 MG/2 ML VIAL IV PRN (08:23)
[2017-03-18] MEDS: LACTULOSE SYRUP 20 GM/30 ML CUP PO SCH (09:00)
[2017-03-18] MEDS: MAGNESIUM HYDROXIDE SUSP 30 ML CUP PO SCH (09:00)
[2017-03-18 09:29] VITALS: BP 161/80; PULSE 81; RESP 20; TEMP 98.2; O2SAT 97
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
[2017-03-18 12:45] VITALS: O2SAT 99
[2017-03-18 12:56] VITALS: BP 156/76; PULSE 88; RESP 20; TEMP 98; O2SAT 97
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
== END 2017-03-18 15:31 | disposition home or self-care (01) | DRG 83 ==
LOC: NEPI 11:47 → N03B 12:58 → EDBD 12:58 → N05B 03-14 16:10
PROVIDERS: ADMIT Surgery; ATTEND Surgery
DX: S06.329A Contusion and laceration of left cerebrum with loss of consciousness of unspecified duration, initial encounter (principal); M48.54XA Collapsed vertebra, not elsewhere classified, thoracic region, initial encounter for fracture; R64 Cachexia; Z68.1 Body mass index [BMI] 19.9 or less, adult; S06.319A Contusion and laceration of right cerebrum with loss of consciousness of unspecified duration, initial encounter; M41.9 Scoliosis, unspecified; J44.9 Chronic obstructive pulmonary disease, unspecified; E86.0 Dehydration; F10.129 Alcohol abuse with intoxication, unspecified; Y90.8 Blood alcohol level of 240 mg/100 ml or more; S01.81XA Laceration without foreign body of other part of head, initial encounter; W19.XXXA Unspecified fall, initial encounter; F17.210 Nicotine dependence, cigarettes, uncomplicated
CPT/HCPCS: 70450; 70496; 70498; 71010; 71260; 72125; 72128; 72131; 72170; 74177; 76937; 80053; 80076; 80307; 82435; 82550; 82552; 82565; 82947; 82977; 83605; 83735; 84100; 84132; 84295; 84520; 85007; 85025; 85027; 85384; 85610; 85730; 86850; 86900; 86901; 90471; 90715; 96374; 99291; C9113; G0390; J0131; J0690; J1100; J1170; J2060; J2270; J2405; J3411; J7030; L0200; L0484; Q9967

== ENCOUNTER 2018-08-18 10:37 | Inpatient (IN) ==
[2018-08-18] MEDS ORDERED: HYDROmorphone PF Inj 2 MG/ML Vial IV.PUSH ONE ×2 (11:23→12:39)
[2018-08-18] MEDS: Sod Chloride 0.9% Inj 1,000 ML IV.CONT SCH ×2 (11:28→19:04)
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
[2018-08-18 11:58] LABS: Baso # (Auto) 0.1 th/mm3 (0.0-0.2); Baso % (Auto) 0.8 % (0.0-2.0); Eos % (Auto) 0.3 % (0.0-4.0); Hematocrit 37.9 % (35.0-46.0); Hemoglobin 12.8 gm/dL (11.6-15.3); Lymph # (Auto) 1.1 th/mm3 (1.0-4.8); Lymph % (Auto) 13.7 % (9.0-44.0); Mean Corpuscular HGB Conc 33.8 % (32.0-36.0); Mean Corpuscular Hemoglobin 32.6 pg (27.0-34.0); Mean Corpuscular Volume 96.4 fL (80.0-100.0); Mean Platelet Volume 7.9 fL (7.0-11.0); Mono # (Auto) 0.5 th/mm3 (0.0-0.9); Neut # (Auto) 6.1 th/mm3 (1.8-7.7); Neut % (Auto) 79.2 % (16.0-70.0); Platelet Count 281 th/mm3 (150-450); Red Blood Count 3.93 mil/mm3 (4.00-5.30); Red Cell Distribution Width 12.5 % (11.6-17.2); White Blood Count 7.8 th/mm3 (4.0-11.0)
[2018-08-18 12:14] LABS: Activated Partial Thrombo Time 22.5 sec (23.4-31.7)
[2018-08-18 12:21] LABS: Alanine Aminotransferase 21 U/L (10-53); Albumin 3.4 g/dL (3.4-5.0); Alkaline Phosphatase 61 U/L (45-117); Anion Gap 6 meq/L (5-15); Aspartate Aminotransferase 23 U/L (15-37); Blood Urea Nitrogen 11 mg/dL (7-18); Calcium 8.2 mg/dL (8.5-10.1); Carbon Dioxide 25.3 meq/L (21.0-32.0); Chloride 110 meq/L (98-107); Glomerular Filtration Rate 80 mL/min (>89); Glucose,Random 97 mg/dL (74-106); Sodium 141 meq/L (136-145); Total Protein 6.8 g/dL (6.4-8.2)
[2018-08-18 12:27] LABS: Potassium 5.1 meq/L (3.5-5.1)
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
[2018-08-18] MEDS ORDERED: Midazolam Inj 5 MG/ML 1 ML Vial IV.PUSH ONE (12:49)
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
[2018-08-18 13:08] LABS: Bacteria,Urine Rare /hpf; Bilirubin,Urine Negative (Negative); Clarity,Urine Clear (Clear); Color,Urine Straw (Yellw/Straw); Glucose,Urine (UA) Negative (Negative); Leukocyte Esterase,Urine Negative (Negative); Nitrite,Urine Negative (Negative); Specific Gravity,Urine 1.006 (1.002-1.035); Squamous Epithelial Cell,Urine <1 /hpf (0-5)
--- NOTE | 2018-08-18 13:33 | XR ---
EXAM DATE: 08/18/2018 1:31 PM EST AGE/SEX: 62 years / Female INDICATIONS: Post reduction. CLINICAL DATA: This is the patient's initial encounter. Patient reports that signs and symptoms have been present for 1 day and indicates a pain score of 10/10. MEDICAL/SURGICAL HISTORY: None. None. COMPARISON: C, WRIST COMPLETE LEFT MIN 3V, 08/18/2018. . FINDINGS: Impacted fracture in the distal radius in near-anatomic alignment in fiberglass. Carpus appears intac t. CONCLUSION: Near-anatomic alignment. Electronically signed by: Alex Decker MD Board Certified Radiologist 08/18/2018 1:32 PM EST
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
[2018-08-18] MEDS: oxyCODONE/Acetaminophen 10/325 Tablet PO PRN ×2 (16:37→20:30)
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
[2018-08-18] MEDS ORDERED: LORazepam 1 MG Tablet PO ONE ×2 (18:06→21:00)
[2018-08-18] MEDS: HYDROmorphone PF Inj 2 MG/ML Vial IV.PUSH PRN ×2 (18:28→22:30)
[2018-08-18] MEDS ORDERED: Metoprolol Tartrate 25 MG Tablet PO ONE (19:45)
[2018-08-18] MEDS ORDERED: Chlorhexidine Gluconate 2% 1 Pack (2 Cloths) TOPICAL ONE (19:45)
--- NOTE | 2018-08-18 19:46 | ECG ---
Date Performed: 08/18/2018 Time Performed: 11:37:54 PTAGE: 62 years EKG: Sinus rhythm POSSIBLE LEFT ATRIAL ENLARGEMENT POSSIBLE LEFT VENTRICULAR HYPERTROPHY ABNORMAL ECG NO PREVIOUS TRACING DOCTOR: Sharan Harris Interpretating Date/Time 08/18/2018 19:45:06
[2018-08-19] MEDS: oxyCODONE/Acetaminophen 10/325 Tablet PO PRN ×5 (00:36→21:30)
[2018-08-19] MEDS: HYDROmorphone PF Inj 2 MG/ML Vial IV.PUSH PRN ×5 (02:34→23:48)
[2018-08-19] MEDS: Sod Chloride 0.9% Inj 1,000 ML IV.CONT SCH ×3 (05:01→19:27)
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
[2018-08-19] MEDS ORDERED: Bupivacaine/Epinephrine Inj 0.25% 50 ML Vial ONE (08:32)
[2018-08-19] MEDS ORDERED: HYDROmorphone PF Inj 1 MG/ML Ampul IV.PUSH PRN ×2 (08:39)
[2018-08-19] MEDS ORDERED: Naloxone Inj 0.4 MG/ML Vial IV.PUSH PRN (08:39)
[2018-08-19] MEDS ORDERED: LORazepam 1 MG Tablet PO PRN (08:43)
[2018-08-19] MEDS ORDERED: HYDROmorphone PF Inj 2 MG/ML Vial IV.PUSH ONE (10:00)
[2018-08-19] MEDS ORDERED: ceFAZolin 2 GM Premix Inj 2 GM/50 ML PIGGYBACK IV.SIG ONE (10:07)
[2018-08-19] MEDS ORDERED: Lidocaine PF 1% Inj 5 ML Syringe OTHER ONE (10:12)
[2018-08-19] MEDS ORDERED: Ketorolac Inj 30 MG/ML (IVP) Vial IV.PUSH ONE (10:12)
[2018-08-19] MEDS ORDERED: Bisacodyl 10 MG Supp RECTAL PRN (11:44)
[2018-08-19] MEDS ORDERED: Post-op Orders (for Pharmacy) OTHER STA (11:44)
[2018-08-19] MEDS ORDERED: *HYDROmorphone PF Inj 1 MG/ML Ampul PERIprocedural Use ONLY ONE ×4 (12:00→13:02)
[2018-08-19] MEDS ORDERED: *Meperidine Inj 25 MG/ML Vial PERIprocedural Use ONLY ONE (12:00)
[2018-08-19] MEDS ORDERED: fentaNYL Citrate Inj 100 MCG/2 ML Ampul ONE (12:04)
--- NOTE | 2018-08-19 13:04 | XR ---
EXAM DATE: 08/19/2018 12:32 PM EST AGE/SEX: 62 years / Female INDICATIONS: ORIF left wrist CLINICAL DATA: This is the patient's initial encounter. Patient reports that signs and symptoms have been present for 1 day and indicates a pain score of 0/10. MEDICAL/SURGICAL HISTORY: None. None. COMPARISON: No prior exams available for comparison. FINDINGS: 2 magnified C-arm spot views are centered over the wrist. These show an orthopedic plate involving th e distal radius along the palmar cortex. Good alignment at the fracture site. CONCLUSION: Limited images as detailed above. Electronically signed by: Chandra Nieves MD Board Certified Radiologist 08/19/2018 1:02 PM EST
[2018-08-19] MEDS ORDERED: ceFAZolin Inj 1 GM in Sodium Chlor 0.9% Inj 100 ML IV.SIG SCH (16:00)
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
[2018-08-19] MEDS: Multivitamin/Minerals Therapeutic Tablet PO SCH (20:02)
[2018-08-19] MEDS: Senna/Docusate Sodium 8.6/50 MG Tablet PO SCH (20:02)
[2018-08-20] MEDS: oxyCODONE/Acetaminophen 10/325 Tablet PO PRN ×4 (02:12→14:38)
[2018-08-20] MEDS: HYDROmorphone PF Inj 2 MG/ML Vial IV.PUSH PRN ×3 (04:18→12:57)
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
[2018-08-20] MEDS: Multivitamin/Minerals Therapeutic Tablet PO SCH (08:39)
[2018-08-20] MEDS: Senna/Docusate Sodium 8.6/50 MG Tablet PO SCH (08:39)
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
== END 2018-08-20 15:26 | disposition home or self-care (01) | DRG 512 ==
LOC: NEPC 10:37 → NEDA 14:30 → N06 16:20
PROVIDERS: ADMIT Internal Medicine; ATTEND Internal Medicine
CPT/HCPCS: 25605; 71010; 71045; 72100; 72170; 73070; 73100; 73110; 73200; 73502; 73560; 76000; 80053; 81001; 85025; 85610; 85730; 90774; 90775; 90784; 93005; 94150; 94770; 96374; 96375; 99285; C1713; C1776; C8952; J0690; J1100; J1170; J1580; J1885; J2175; J2250; J2405; J2704; J3010; J7030; J7120; L6380